=== PATIENT | male | born 1965 | race Caucasian/White ===

== ENCOUNTER 2018-02-07 13:18 | Emergency (ER) | payer OTHER ==
[2018-02-07] MEDS: NS 1,000 ML IV ×3 (13:52→19:52)
[2018-02-07 14:15] LABS: HEMOGLOBIN 10.7 g/dl (13.5-17.5); MEAN CORPUSCULAR HEMOGLOBIN 28.5 pg (27.0-33.0); MEAN CORPUSCULAR HGB CONC 32.4 g/dl (32.0-36.5); PLATELET COUNT, AUTOMATED 595 10^3/uL (150-450); RED BLOOD COUNT 3.75 10^6/uL (4.30-6.10); RED CELL DISTRIBUTION WIDTH 13.7 % (11.5-14.5); WHITE BLOOD COUNT 15.4 10^3/uL (4.0-10.0)
[2018-02-07 14:17] LABS: ALBUMIN 2.2 GM/DL (3.2-5.2); ALBUMIN/GLOBULIN RATIO 0.44 (1.00-1.93); ALKALINE PHOSPHATASE 108 U/L (45-117); ALT/SGPT 23 U/L (12-78); AMYLASE 161 U/L (25-115); ANION GAP 14 MEQ/L (8-16); AST/SGOT 29 U/L (7-37); BILIRUBIN,DIRECT 0.5 MG/DL (0.0-0.2); BILIRUBIN,TOTAL 1.2 MG/DL (0.2-1.0); BLOOD UREA NITROGEN 15 MG/DL (7-18); CALCIUM LEVEL 8.3 MG/DL (8.5-10.1); CARBON DIOXIDE LEVEL 21 MEQ/L (21-32); CHLORIDE LEVEL 99 MEQ/L (98-107); CK-MB VALUE MASS < 1.0 NG/ML (<3.6); CPK CREATINE PHOSPHOKINASE 16 U/L (39-308); CREATININE FOR GFR 1.36 MG/DL (0.70-1.30); GLOMERULAR FILTRATION RATE 59.1 (>56); GLUCOSE, FASTING 200 MG/DL (70-100); LIPASE 764 U/L (73-393); MB/CK RELATIVE INDEX 6.25 (< OR =4); POTASSIUM SERUM 4.4 MEQ/L (3.5-5.1); SODIUM LEVEL 134 MEQ/L (136-145); TOTAL PROTEIN 7.2 GM/DL (6.4-8.2); TROPONIN I < 0.02 NG/ML (< 0.10)
[2018-02-07 14:19] LABS: INR 1.54; PROTHROMBIN TIME 18.8 SECONDS (12.1-14.4)
[2018-02-07 14:20] LABS: ADD MANUAL DIFFER YES; DIFF SLIDE NUMBER 299; POSITIVE MORPH POS FLAG
[2018-02-07 14:28] LABS: LACTIC ACID SEPSIS PROTOCOL 5.3 MMOL/L (0.4-2.0)
[2018-02-07 14:40] LABS: BANDS 16 % (< 11); LYMPHOCYTES 8 % (16-52); METAMYELOCYTES 1 % (0-0); NEUTROPHILS 75 % (35-75)
[2018-02-07 14:42] LABS: PLATELET ESTIMATE INCREASED (NORMAL)
[2018-02-07] MEDS ORDERED: ISOVUE-370 76% 100ML VIAL (Q9967) As Ordered (15:07)
[2018-02-07] MEDS: ONDANSETRON 4MG/2ML VIAL (J2405) IV (15:21)
[2018-02-07] MEDS: HYDROMORPHONE HCL 0.5 MG/ 0.5 ML SYRINGE (J1170 PER 1) IV ×2 (15:53→17:19)
[2018-02-07] MEDS: MEROPENEM INJ 1 GM in APPROPRIATE DILUENT 1 EA IV (18:40)
[2018-02-07] MEDS: MORPHINE 2 MG/ML 1ML SYRINGE (J2270) IV (21:26)
== END 2018-02-07 21:35 | disposition short-term general hospital (02) ==
LOC: M ED 13:18
DX: K85.91 Acute pancreatitis with uninfected necrosis, unspecified (principal); R11.0 Nausea; I10 Essential (primary) hypertension; Z87.19 Personal history of other diseases of the digestive system; Z79.899 Other long term (current) drug therapy; Z79.2 Long term (current) use of antibiotics
CPT/HCPCS: J2405

== ENCOUNTER 2018-03-06 18:46 | Emergency (ER) | payer OTHER ==
[2018-03-06 20:26] LABS: BASO % 0.2 % (0.0-1.0); EOS % 0.2 % (0.0-3.0); HEMATOCRIT 28.5 % (42.0-52.0); HEMOGLOBIN 8.7 g/dl (13.5-17.5); IMMATURE GRANULOCYTE % 0.9 % (0-3.0); LYMPH # 0.8 10^3/uL (1.5-4.5); LYMPH % 5.6 % (24.0-44.0); MEAN CORPUSCULAR HEMOGLOBIN 26.9 pg (27.0-33.0); MEAN CORPUSCULAR HGB CONC 30.5 g/dl (32.0-36.5); MEAN CORPUSCULAR VOLUME 88.2 fl (80.0-96.0); MONO # 1.2 10^3/uL (0.0-0.8); MONO % 8.3 % (0.0-5.0); NEUTROPHILS # 12.5 10^3/uL (1.8-7.7); NEUTROPHILS % 84.8 % (36.0-66.0); PLATELET COUNT, AUTOMATED 428 10^3/uL (150-450); RED BLOOD COUNT 3.23 10^6/uL (4.30-6.10); RED CELL DISTRIBUTION WIDTH 16.9 % (11.5-14.5); WHITE BLOOD COUNT 14.7 10^3/uL (4.0-10.0)
[2018-03-06 20:44] LABS: LIPASE 184 U/L (73-393)
[2018-03-06 20:49] LABS: ALBUMIN/GLOBULIN RATIO 0.44 (1.00-1.93); ALKALINE PHOSPHATASE 52 U/L (45-117); ALT/SGPT 7 U/L (12-78); ANION GAP 8 MEQ/L (8-16); AST/SGOT 10 U/L (7-37); BILIRUBIN,DIRECT 0.3 MG/DL (0.0-0.2); BILIRUBIN,TOTAL 0.8 MG/DL (0.2-1.0); BLOOD UREA NITROGEN 5 MG/DL (7-18); CALCIUM LEVEL 7.8 MG/DL (8.5-10.1); CARBON DIOXIDE LEVEL 26 MEQ/L (21-32); CHLORIDE LEVEL 104 MEQ/L (98-107); CREATININE FOR GFR 0.58 MG/DL (0.70-1.30); GLOMERULAR FILTRATION RATE > 60.0 (>56); GLUCOSE, FASTING 114 MG/DL (70-100); POTASSIUM SERUM 3.4 MEQ/L (3.5-5.1); SODIUM LEVEL 138 MEQ/L (136-145); TOTAL PROTEIN 6.5 GM/DL (6.4-8.2)
[2018-03-06 20:50] LABS: LACTIC ACID SEPSIS PROTOCOL 1.3 MMOL/L (0.4-2.0)
[2018-03-06] MEDS: ACETAMINOPHEN 325 MG TAB PO (21:15)
[2018-03-06] MEDS: IMIPENEM/CILASTATIN 500 MG in D5W MINI-BAG PLUS 100 ML IV (21:20)
[2018-03-06] MEDS: NS 1,000 ML IV (21:20)
[2018-03-06] MEDS ORDERED: ISOVUE-370 76% 100ML VIAL (Q9967) As Ordered (22:26)
[2018-03-06] MEDS: VANCOMYCIN HCL 1,000 MG, VIAL MATE ADAPTER 1 EACH in D5W 250 ML IV (22:58)
[2018-03-06] MEDS: ONDANSETRON 4MG/2ML VIAL (J2405) IV (23:15)
[2018-03-07] MEDS: METOCLOPRAMIDE INJ 10MG/2ML VIAL (J2765) IV (00:45)
== END 2018-03-07 02:36 | disposition short-term general hospital (02) ==
LOC: M ED 03-07 02:36
DX: J18.1 Lobar pneumonia, unspecified organism (principal); K85.81 Other acute pancreatitis with uninfected necrosis; K86.3 Pseudocyst of pancreas; I10 Essential (primary) hypertension; D64.9 Anemia, unspecified; K21.9 Gastro-esophageal reflux disease without esophagitis; Z96.89 Presence of other specified functional implants; Z79.899 Other long term (current) drug therapy; Z79.2 Long term (current) use of antibiotics
CPT/HCPCS: J3370

== ENCOUNTER 2018-03-13 15:13 | Emergency (ER) | payer OTHER ==
[2018-03-13] MEDS: NS 1,000 ML IV (16:20)
[2018-03-13] MEDS: PANTOPRAZOLE 40MG INJ (PROTONIX) (C9113) IV (16:30)
[2018-03-13] MEDS: ONDANSETRON 4MG/2ML VIAL (J2405) IV (16:30)
[2018-03-13 16:59] LABS: BASO % 0.2 % (0.0-1.0); EOS % 0.3 % (0.0-3.0); HEMATOCRIT 27.5 % (42.0-52.0); HEMOGLOBIN 8.5 g/dl (13.5-17.5); IMMATURE GRANULOCYTE % 0.6 % (0-3.0); LYMPH % 7.1 % (24.0-44.0); MEAN CORPUSCULAR HEMOGLOBIN 26.8 pg (27.0-33.0); MEAN CORPUSCULAR HGB CONC 30.9 g/dl (32.0-36.5); MEAN CORPUSCULAR VOLUME 86.8 fl (80.0-96.0); MONO % 6.9 % (0.0-5.0); NEUTROPHILS % 84.9 % (36.0-66.0); PLATELET COUNT, AUTOMATED 506 10^3/uL (150-450); RED BLOOD COUNT 3.17 10^6/uL (4.30-6.10); RED CELL DISTRIBUTION WIDTH 17.2 % (11.5-14.5); WHITE BLOOD COUNT 14.1 10^3/uL (4.0-10.0)
[2018-03-13 17:19] LABS: ALBUMIN 1.9 GM/DL (3.2-5.2); ALBUMIN/GLOBULIN RATIO 0.32 (1.00-1.93); ALKALINE PHOSPHATASE 57 U/L (45-117); ALT/SGPT 8 U/L (12-78); ANION GAP 9 MEQ/L (8-16); AST/SGOT 9 U/L (7-37); BILIRUBIN,DIRECT 0.2 MG/DL (0.0-0.2); BILIRUBIN,TOTAL 0.5 MG/DL (0.2-1.0); BLOOD UREA NITROGEN 7 MG/DL (7-18); CALCIUM LEVEL 8.4 MG/DL (8.5-10.1); CARBON DIOXIDE LEVEL 25 MEQ/L (21-32); CHLORIDE LEVEL 105 MEQ/L (98-107); GLOMERULAR FILTRATION RATE > 60.0 (>56); GLUCOSE, FASTING 109 MG/DL (70-100); LIPASE 165 U/L (73-393); POTASSIUM SERUM 3.3 MEQ/L (3.5-5.1); SODIUM LEVEL 139 MEQ/L (136-145); TOTAL PROTEIN 7.8 GM/DL (6.4-8.2)
[2018-03-13 17:24] LABS: INR 1.48; PROTHROMBIN TIME 18.2 SECONDS (12.1-14.4)
[2018-03-13] MEDS: GI COCKTAIL 50ML BTL(HYOSCYAMINE/MAALOX/LIDOCAINE VISCOUS)(1:3:1) PO (18:15)
[2018-03-13] MEDS: ONDANSETRON 4 MG ORAL DISINTEGRATING TAB (Q0162 PER 1MG) PO (21:59)
== END 2018-03-13 22:01 | disposition home or self-care (01) ==
LOC: M ED 15:13
DX: R11.2 Nausea with vomiting, unspecified (principal); I10 Essential (primary) hypertension; Z79.899 Other long term (current) drug therapy
CPT/HCPCS: C9113

== ENCOUNTER 2018-04-11 00:43 | Emergency (ER) | payer OTHER ==
[2018-04-11] MEDS ORDERED: ISOVUE-370 76% 100ML VIAL (Q9967) As Ordered (04:05)
[2018-04-11 05:00] LABS: ANION GAP 10 MEQ/L (8-16); BLOOD UREA NITROGEN 4 MG/DL (7-18); CALCIUM LEVEL 7.7 MG/DL (8.5-10.1); CARBON DIOXIDE LEVEL 25 MEQ/L (21-32); CHLORIDE LEVEL 106 MEQ/L (98-107); CREATININE FOR GFR 0.54 MG/DL (0.70-1.30); GLOMERULAR FILTRATION RATE > 60.0 (>56); GLUCOSE, FASTING 92 MG/DL (70-100); POTASSIUM SERUM 3.4 MEQ/L (3.5-5.1); SODIUM LEVEL 141 MEQ/L (136-145)
== END 2018-04-11 07:15 | disposition home or self-care (01) ==
LOC: M ED 00:43
DX: Z43.8 Encounter for attention to other artificial openings (principal)
CPT/HCPCS: Q9967

== ENCOUNTER → 2018-08-28 | Outpatient (CLI) | payer OTHER ==
[~2018-08-28] MED LIST: /PANT40TA PO; AUGM875T28 PO; BACITAB PO; BACL10TA2 PO; BENG1CRE3 EXT; CARA1TAB2 PO; CEFE2INJ INJ; CEFE2INJ IV; CYCL10TA PO; DOXY-350 PO; FLAG500T PO; HEPA100I14 IV; HEPA100SY INJ; LISI10TA4 PO; METO1TAB87 PO; METO5TAB2 PO; MULTTAB4 PO; OXYC1TAB23 PO; PERCOCET PO; POTA1TAB14 PO; SALI0.9I2 IV; SENO17.2 PO; SIME80TA PO; TYLE500T78 PO; ZOFR4TAB14 PO; [UNRECOGNIZED DRUG - CODE] IV; [UNRECOGNIZED DRUG - OTHER] PO
[2018-08-28 10:42] LABS: BASO % 0.6 % (0.0-1.0); EOS # 0.2 10^3/uL (0.0-0.50); EOS % 2.7 % (0.0-3.0); HEMATOCRIT 41.7 % (42.0-52.0); HEMOGLOBIN 13.2 g/dl (13.5-17.5); LYMPH # 1.4 10^3/uL (1.5-4.5); LYMPH % 21.9 % (24.0-44.0); MEAN CORPUSCULAR HEMOGLOBIN 26.3 pg (27.0-33.0); MEAN CORPUSCULAR HGB CONC 31.7 g/dl (32.0-36.5); MEAN CORPUSCULAR VOLUME 83.1 fl (80.0-96.0); MONO # 0.4 10^3/uL (0.0-0.8); MONO % 6.4 % (0.0-5.0); NEUTROPHILS # 4.3 10^3/uL (1.8-7.7); NEUTROPHILS % 68.2 % (36.0-66.0); PLATELET COUNT, AUTOMATED 261 10^3/uL (150-450); RED BLOOD COUNT 5.02 10^6/uL (4.30-6.10); WHITE BLOOD COUNT 6.3 10^3/uL (4.0-10.0)
[2018-08-28 11:11] LABS: MALB URINE SIEMENS 10.5 MG/L; MAU/CREAT RATIO 7.2 MCG/MG (0.0-30.0)
[2018-08-28 11:21] LABS: ALBUMIN 3.7 GM/DL (3.2-5.2); ALT/SGPT 28 U/L (12-78); BLOOD UREA NITROGEN 18 MG/DL (7-18); CALCIUM LEVEL 8.9 MG/DL (8.5-10.1); CARBON DIOXIDE LEVEL 28 MEQ/L (21-32); CHLORIDE LEVEL 109 MEQ/L (98-107); CHOLESTEROL LEVEL 156 MG/DL (<200); CHOLESTEROL RISK RATIO 2.888 (<5); CREATININE FOR GFR 0.99 MG/DL (0.70-1.30); FERRITIN 20 NG/ML (26-388); FOLATE 11.4 NG/ML; FREE T4 1.03 NG/DL (0.76-1.46); GLOMERULAR FILTRATION RATE > 60.0 (>56); GLUCOSE, FASTING 116 MG/DL (70-100); HDL CHOLESTEROL 54 MG/DL (>40); IRON (FE) 62 UG/DL (65-175); LDL CHOLESTEROL 89 MG/DL (<100); NON-HDL-C 102 MG/DL; PERCENT SATURATION 16.2 % (19.7-50.0); SODIUM LEVEL 143 MEQ/L (136-145); TOTAL IRON BINDING CAPACITY 383 UG/DL (250-450); TOTAL PROTEIN 7.8 GM/DL (6.4-8.2); TRIGLYCERIDES LEVEL 64 MG/DL (<150)
--- NOTE | 2018-08-29 02:51 | REP ---
Clinical: Lower back pain. Technique: AP, lateral, bilateral oblique and coned-down views of the lumbosacral spine. Findings: The patient is noted to be status post cholecystectomy with evidence for pancreatic duct stents noted. Alignment and lordosis maintained. No acute fracture / compression injury or subluxation. No spondylolysis or spondylolisthesis. Very minimal endplate sclerosis, subtle early marginal spurring, and mild hypertrophic facet changes are appreciated. Subtle disc space narrowing and L5-S1 cannot be excluded. Impression: Very minimal age-related changes to the lumbosacral spine. Electronically Signed by Tristen Osman MD 08/29/2018 02:42 A
[2018-08-29 13:28] LABS: VITAMIN B12 LEVEL 317 PG/ML (232-1245)
== END ==
LOC: M LAB 09:32
PROVIDERS: ATTEND Physician Assistant
DX: M54.5 Low back pain (principal); D64.9 Anemia, unspecified; I10 Essential (primary) hypertension; Z13.220 Encounter for screening for lipoid disorders

== ENCOUNTER → 2018-10-11 | Outpatient (CLI) | payer OTHER ==
[2018-10-11 10:50] LABS: MEAN CORPUSCULAR HEMOGLOBIN 26.8 pg (27.0-33.0); MEAN CORPUSCULAR HGB CONC 31.8 g/dl (32.0-36.5); MEAN CORPUSCULAR VOLUME 84.3 fl (80.0-96.0); PLATELET COUNT, AUTOMATED 211 10^3/uL (150-450); RED BLOOD COUNT 5.22 10^6/uL (4.30-6.10); WHITE BLOOD COUNT 5.5 10^3/uL (4.0-10.0)
[2018-10-11 11:25] LABS: PERCENT SATURATION 23.9 % (19.7-50.0)
== END ==
LOC: M LAB 09:53
PROVIDERS: ATTEND Physician Assistant
DX: D50.9 Iron deficiency anemia, unspecified (principal)

== ENCOUNTER 2018-12-09 15:07 | Observation (INO) | payer OTHER ==
[~2018-12-09] VITALS: Ht 177.8 cm; Wt 81.8 kg
[~2018-12-09 15:07] MED LIST changes: -/PANT40TA PO; -CEFE2INJ INJ; +CEFE2INJ5 INJ; +PROT1TAB2 PO
[2018-12-09] MEDS ORDERED: NS 1,000 ML IV ONE (15:30)
[2018-12-09 15:50] LABS: HEMATOCRIT 46.7 % (42.0-52.0); MEAN CORPUSCULAR HGB CONC 32.1 g/dl (32.0-36.5); MEAN CORPUSCULAR VOLUME 87.1 fl (80.0-96.0); PLATELET COUNT, AUTOMATED 204 10^3/uL (150-450); RED BLOOD COUNT 5.36 10^6/uL (4.30-6.10); WHITE BLOOD COUNT 8.2 10^3/uL (4.0-10.0)
[2018-12-09 16:03] LABS: INR 1.04; PROTHROMBIN TIME 13.7 SECONDS (12.1-14.4)
[2018-12-09 16:04] LABS: PARTIAL THROMBOPLASTIN TIME 30.1 SECONDS (25.4-37.6)
[2018-12-09] MEDS ORDERED: ISOVUE-370 76% 100ML VIAL (Q9967) As Ordered ONE (16:10)
[2018-12-09 16:12] LABS: ATYPICAL LYMPH 3 % (0-5); LYMPHOCYTES 5 % (16-52); MONOCYTES 2 % (0-8); NEUTROPHILS 87 % (35-75)
[2018-12-09 16:13] LABS: PLATELET CLUMPS SMALL AMT; PLATELET ESTIMATE NORMAL (NORMAL)
[2018-12-09 16:15] LABS: ALBUMIN 3.8 GM/DL (3.2-5.2); ALT/SGPT 26 U/L (12-78); AMYLASE 55 U/L (25-115); BILIRUBIN,DIRECT 0.4 MG/DL (0.0-0.2); BILIRUBIN,TOTAL 2.4 MG/DL (0.2-1.0); CPK CREATINE PHOSPHOKINASE 86 U/L (39-308); LIPASE 80 U/L (73-393); MB/CK RELATIVE INDEX 1.16 (< OR =4); TOTAL PROTEIN 7.5 GM/DL (6.4-8.2); TROPONIN I < 0.02 NG/ML (< 0.10)
--- NOTE | 2018-12-09 18:00 | ECGEPIP ---
Stationary ECG Study [facility] - ED Test Date: 2018-12-09 Pat Name: JEFFREY ALY Department: Room: - Gender: M Bid Analyst: ESTEBAN : [id number] Requested By: JEANINE Silva Order Number: [id number] Reading MD: Chanelle Obrien Measurements Intervals [place] Rate: 77 P: 45 SD: 167 QRS: 67 QRSD: 98 T: 57 QT: 361 QTc: 410 Interpretive Statements SINUS RHYTHM EARLY REPOLARIZATION, CLINICAL CORRELATION DECREASED RATE 02/07/18 Electronically Signed On 12-09-2018 18:00:31 EDT by Chanelle Obrien
[2018-12-09] MEDS ORDERED: PANT40TA3 PO (18:48)
[2018-12-09] MEDS ORDERED: CVS1CAP2 PO (18:48)
[2018-12-09] MEDS ORDERED: ACETAMINOPHEN TAB 650MG DOSE (2X325MG) PO PRN (19:15)
[2018-12-09] MEDS: NS 1,000 ML IV SCH ×2 (19:36→21:39)
--- NOTE | 2018-12-09 19:52 | HPEPDOC ---
General Date of Admission 12/09/2018 Attending Physician: ZO CARDONA MD Chief Complaint The patient is a 53-year-old male admitted with a reason for visit of General Weakness. Source: Patient, Family Exam Limitations: No limitations Timing/Duration: 24 hours Severity: Moderate Associated Symptoms: Chills, Hypotension, Dizziness History of Present Illness Patient is a 53-year-old male, primary medical history significant for chronic pancreatitis with pancreatic stent, cholecystitis status post cholecystectomy and biliary stent placement, anemia, peptic ulcers on chronic proton pump i nhibitor for 4 years, presenting to the emergency room on account of dizziness and presyncope. On admission, patient's blood pressure was 83/52. Patient reports he has had diarrhea since yesterday and estimates he had about 4-6 episodes of diarrhea. He has been drinking and eating okay, but he continued to take his blood pressure medication, lisinopril. Patient and admit the did not check his blood pressure prior to taking lisinopril yesterday night. At about 10 AM today, he developed generalized weakness, fatigue, malaise and felt like he was going to pass out. Patient was driving at onset of symptoms. He went home and laid down and about 4 hours later when his got home, he was s till feeling bad. He reports subjective fevers. On arrival to the emergency room blood pressure was 83/52, lactic acid was elevated, bilirubin was elevated, CT abdomen and pelvis with abnormal for small bowel obstruction versus ileus. Patient's clinical exam was benign. He denied any pain to his abdomen. He denied any nausea or vomiting. Concerning CT findings were discussed with surgical team who recommended supportive care and overnight monitoring. His blood pressure improved with fluid bolus. At time of assessment. Patient denied any symptoms, although he was lying down. He reports similar symptoms years ago at which time it was discovered he had bleeding ulcers. Hemoglobin was low and blood pressure was low. He has been on lisinopril for 2 years and is followed by a local GI specialist for monitoring and management of chronic pancreatitis. Patient reports he has 40% of his pancreatic function remaining. Home Medications Scheduled Lactobacillus Combo No.10 (Probiotic) 1 Each Capsule, 1 CAP PO DAILY, (Reported) Lisinopril (Lisinopril) 10 Mg Tab, 10 MG PO QHS, (Reported) Pantoprazole Sodium (Pantoprazole Sodium) 40 Mg Tablet.dr, 40 MG PO QHS, (Reported) Allergies Coded Allergies: No Known Allergies (Unverified , 11/01/13) Past Medical History Medical History Chronic pancreatitis Ulcers Anemia GERD Surgical History Biliary stent placement Pancreatic stent placement Colonoscopy 2 years ago Cholecystectomy Bilateral hernia repair at 6 weeks of age Family History Father: Fatal myocardial infarction. Sibling: Hemachromatosis Social History * Smoker: Denies Alcohol: Denies Drugs: denies A-FIB/CHADSVASC A-FIB History Current/History of A-Fib/PAF?: No Current Oral Anticoagulant The: No Treatment Treatment ordered: NONE Review of Systems Other systems A 10 point pertinent review of systems was completed, negative except as stated in the history of presenting illness Physical Examination Other physical findings GENERAL: NAD SKIN : Warm, dry intact HEENT: Atraumatic, normocephalic, PERRL, moist mucous membrane CARDIOVASCULAR: Regular rate and rhythm, S1S2, no JVD, no edema, distal pulses + and palpable RESP: CTAB, no accessory muscle use noted ABDOMEN: Hypoactive non distended non tender MS: no joint deformities NEURO: Alert and oriented x 3, CN2-12 grossly intact PSYCH: no anxiety or agitation, appropriate mood and affect. Vital Signs Vital Signs Date Time Temp Pulse Resp B/P (MAP) Pulse Ox O2 Delivery O2 Flow Rate FiO2 12/09/18 18:46 139/72 (94) 12/09/18 18:37 95 18 97 12/09/18 18:22 Room Air 12/09/18 15:07 97.8 Laboratory Data Labs 24H Laboratory Tests 2 12/09/18 15:32: Nucleated Red Blood Cells % (auto) 0.0, Neutrophils 87H, Band Neutrophils 3, Lymphocytes (Manual) 5L, Monocytes (Manual) 2, Atypical Lymphocytes 3, Platelet Estimate NORMAL, Clumped Platelets SMALL AMT, Prothrombin Time 13.7, Prothromb T hernesto International Ratio 1.04, Activated Partial Thromboplast Time 30.1, Lactic Acid Level 2.1*H, Aspartate Amino Transf (AST/SGOT) 24, Alanine Aminotransferase (ALT/SGPT) 26, Alkaline Phosphatase 91, Total Bilirubin 2.4H, Direct Bilirubin 0.4H, Total Creatine Kinase 86, Creatine Kinase MB 1.0, Creatine Kinase MB Relative Index 1.16, Troponin I < 0.02, Total Protein 7.5, Albumin 3.8, Albumin/Globulin Ratio 1.03, Amylase Level 55, Lipase 80 12/09/18 15:56: POC Glucose (Misc Panel) 140H, POC Sodium (Misc Panel) 135L, POC Potassium (Misc Panel) 4.8, POC Chloride (Misc Panel) 102, POC Total CO2 (Misc Panel) 23.0, POC Blood Urea Nitrogen (Misc Panel 18, POC Ionized Calcium (Misc Panel) 4.5, POC Creatinine (Misc Panel) 1.1, POC Hematocrit (Misc Panel) 46.0 CBC/BMP Laboratory Tests 12/09/18 15:32 Red Blood Count 5.36, Mean Corpuscular Volume 87.1, Mean Corpuscular Hemoglobin 28.0, Mean Corpuscular Hemoglobin Concent 32.1, Red Cell Distribution Width 13.9 Microbiology Microbiology 12/09/18 Blood Culture, Received Pending 12/09/18 Blood Culture, Received Pending Assessment/Plan Presyncope -Likely due to volume depletion and concomitant antihypertensive use -Hold lisinopril at this time -Continue IV fluids -Admit to telemetry to exclude any underlying arrhythmia Diarrhea -Abnormal imaging study showing small bowel obstruction versus ileus -Patient, however, has no clinical signs or symptoms of obstructive process -. Keep on clear liquids at this time -Surgical consultation if persistent or clinical signs of small bowel obstru ction -GI panel Hypertension -Presenting with hypotension in the setting of diarrhea -Hold lisinopril at this time -Blood pressure monitoring Q 4 . Hours Hyperbilirubinemia -with history of biliary stenting -Keep nothing by mouth -Follow bilirubin levels in the morning -If febrile or signs of infection then start on empiric antibiotic therapy consult surgical team. -Low suspicion for cholangitis at this time -Patient states his stents that changed every 3 months -if bilirubin remains on upward trend, we'll need to reconsult GI for evaluation of stent patency DVT prophylaxis Lovenox daily GI prophylaxis -continue PPI Plan / VTE VTE Prophylaxis Ordered?: Yes MARTHA FRANCIS December 09, 2018 19:52
[2018-12-09 21:30] VITALS: BP 163/86
[2018-12-09] MEDS: ENOXAPARIN 30 MG/0.3 ML SYR (J1650) SC SCH (22:29)
[2018-12-09 23:19] LABS: ALBUMIN 2.9 GM/DL (3.2-5.2); ALT/SGPT 22 U/L (12-78); BILIRUBIN,TOTAL 1.9 MG/DL (0.2-1.0); BLOOD UREA NITROGEN 14 MG/DL (7-18); CALCIUM LEVEL 7.5 MG/DL (8.5-10.1); CARBON DIOXIDE LEVEL 24 MEQ/L (21-32); CHLORIDE LEVEL 108 MEQ/L (98-107); CREATININE FOR GFR 1.07 MG/DL (0.70-1.30); GLOMERULAR FILTRATION RATE > 60.0 (>56); GLUCOSE, FASTING 129 MG/DL (70-100); POTASSIUM SERUM 4.2 MEQ/L (3.5-5.1); SODIUM LEVEL 138 MEQ/L (136-145); TOTAL PROTEIN 6.4 GM/DL (6.4-8.2)
[2018-12-10] VITALS (8 sets, daily range): BP systolic 135–161; BP diastolic 65–102
[2018-12-10 06:03] LABS: HEMATOCRIT 40.5 % (42.0-52.0); MEAN CORPUSCULAR HGB CONC 32.1 g/dl (32.0-36.5); MEAN CORPUSCULAR VOLUME 87.3 fl (80.0-96.0); PLATELET COUNT, AUTOMATED 157 10^3/uL (150-450); RED BLOOD COUNT 4.64 10^6/uL (4.30-6.10); WHITE BLOOD COUNT 4.7 10^3/uL (4.0-10.0)
[2018-12-10 06:18] LABS: ALBUMIN 2.8 GM/DL (3.2-5.2); ALT/SGPT 22 U/L (12-78); BILIRUBIN,DIRECT 0.3 MG/DL (0.0-0.2); BILIRUBIN,TOTAL 2.3 MG/DL (0.2-1.0); BLOOD UREA NITROGEN 13 MG/DL (7-18); CALCIUM LEVEL 7.6 MG/DL (8.5-10.1); CARBON DIOXIDE LEVEL 26 MEQ/L (21-32); CHLORIDE LEVEL 109 MEQ/L (98-107); CREATININE FOR GFR 1.01 MG/DL (0.70-1.30); GLOMERULAR FILTRATION RATE > 60.0 (>56); GLUCOSE, FASTING 128 MG/DL (70-100); POTASSIUM SERUM 4.1 MEQ/L (3.5-5.1); SODIUM LEVEL 140 MEQ/L (136-145); TOTAL PROTEIN 6.3 GM/DL (6.4-8.2)
--- NOTE | 2018-12-10 07:33 | REP ---
HISTORY: Near syncopal episode. COMPARISON: The latest prior is a frontal view of the chest obtained 03/13/2018 as part of an abdominal series. The technique utilized in obtaining the radiograph has magnified the cardiac silhouette and accentuated the interstitial markings. AP and lateral views were obtained. The superior mediastinal structures are midline. The cardiac silhouette is unremarkable in size, shape and position. The diaphragmatic surfaces of the lungs are regular and the costophrenic angles are clear. The pulmonary bowden are clear. The imaged osseous structures are intact. IMPRESSION: There is no acute cardiopulmonary disease. Electronically Signed by Ja Luu DO 12/10/2018 09:11 A
--- NOTE | 2018-12-10 08:26 | REP ---
HISTORY: History of pancreatitis. COMPARISON: 04/11/2018. The lung bases are clear. The liver and spleen are within normal limits. The adrenal glands and kidneys are within normal limits. The abdominal aorta and periaortic regions are within normal limits. There is a stent within the pancreas. There is no abnormal peripancreatic fatty infiltration. There is a tiny amount of fluid trapped in the leaves of the small bowel mesentery, not in the pararenal space. There is evidence of central mesenteric fibrosis with mild diffuse fatty infiltration. Multiple small bowel loops are seen to be gas and fluid filled. There is no evidence of free intraperitoneal air. CT PELVIS: The pelvis bowel loops are within normal limits with the exception of the aforementioned small bowel. There is no free fluid or free air. There is no pelvic mass or adenopathy. The osseous structures are unchanged. IMPRESSION: Chronic changes seen involving the pancreas and peripancreatic regions without evidence of acute pancreatitis at this time. This needs to be correlated clinically and if the patient has clinical signs of pancreatitis, then I would recommend close followup. There is a small bowel ileus versus early SBO. This too needs to be correlated clinically with appropriate followup. Electronically Signed by Ja Luu DO 12/10/2018 09:12 A
[2018-12-10] MEDS: NS 1,000 ML IV SCH ×2 (08:30→17:34)
--- NOTE | 2018-12-10 14:41 | IPNPDOC ---
Date Seen The patient was seen on 12/10/18. Progress Note SUBJECTIVE: Patient tells me that he is feeling better he's not any further episodes of lightheadedness or near passing out. He tells me that his blood pressures improved and that he is feeling better. He reports passing gas from below no vomiting otherwise patient denies chest pain, shortness, breath, nausea, vomiting, fevers, chills OBJECTIVE PHYSICAL EXAMINATION: VITAL SIGNS: Please see below. GENERAL: Pleasant middle-aged man laying flat in bed awake alert oriented speaking in complete sentences no acute distress HEENT: Moist mucous membranes no elevation and CVP CARDIOVASCULAR: S1 S2 regular no additional heart sounds appreciated. RESPIRATORY: Clear to auscultation bilaterally. ABDOMINAL: Bowel sounds present abdomen soft and nontender EXTREMITIES: No clubbing, cyanosis, edema NEUROLOGICAL: Spontaneously moves all 4 extremities cranial 2 through 12 grossly intact, no gross focal deficits appreciated PSYCHOLOGICAL: Appropriate LABORATORY DATA, MICROBIOLOGY: Please see below. IMAGING STUDIES: Chest x-ray:There is no acute cardiopulmonary disease. CT abdomen pelvis:Chronic changes seen involving the pancreas and peripancreatic regions without evidence of acute pancreatitis at this time. This needs to be correlated clinically and if the patient has clinical signs of pancreatitis, then I would recommend close followup. There is a small bowel ileus versus early SBO. This too needs to be correlated clinically with appropriate followup. DVT prophylaxis ordered: Lovenox ASSESSMENT AND PLAN: This is a 53-year-old man with near syncope secondary to hypotension. PROBLEMS: 1. Near syncope: Secondary to hypotension was found to be hypotensive in the emergency room os was secondary to medication adverse affect. For the time being he is on normal saline his home lisinopril is on hold. He seems to be doing much better. Denies any other concerning prodromal symptoms no palpitations no lightheadedness no sandra syncope. The patient had also had recent diarrhea he has had no further episodes since being hospitalized. A GI PCR panel has been ordered. The combination of lisinopril and the diarrhea may have been dropped his pressure sufficiently enough to become symptomatic 2. Gastroesophageal reflux disease: Continue with PPI. 3. Elevated bilirubin: Patient has a history of biliary obstruction and chronic pancreatitis, MRI of the abdomen has been ordered to further evaluate this given his abnormal lab values. However my suspicion for any pathology is quite low given that he is completely asymptomatic and has a very benign abdominal exam. DISPOSITION: Pending PT possibly home tomorrow pending MRI. VS, I&O, 24H, Fishbone Vital Signs/I&O Vital Signs Date Time Temp Pulse Resp B/P (MAP) Pulse Ox O2 Delivery O2 Flow Rate FiO2 12/10/18 11:17 86 161/102 (121) 12/10/18 10:00 99.0 18 97 12/09/18 19:16 Room Air I&O- Last 24 Hours up to 6 AM 12/10/18 06:00 Intake Total 1850 ml Output Total 1050 ml Balance 800 ml Laboratory Data 24H LABS Laboratory Tests 2 12/09/18 15:32: Nucleated Red Blood Cells % (auto) 0.0, Neutrophils 87H, Band Neutrophils 3, Lymphocytes (Manual) 5L, Monocytes (Manual) 2, Atypical Lymphocytes 3, Platelet Estimate NORMAL, Clumped Platelets SMALL AMT, Prothrombin Time 13.7, Prothromb Time International Ratio 1.04, Activated Partial Thromboplast Time 30.1, Lactic Acid Level 2.1*H, Aspartate Amino Transf (AST/SGOT) 24, Alanine Aminotransferase (ALT/SGPT) 26, Alkaline Phosphatase 91, Total Bilirubin 2.4H, Direct Bilirubin 0.4H, Total Creatine Kinase 86, Creatine Kinase MB 1.0, Creatine Kinase MB Relative Index 1.16, Troponin I < 0.02, Total Protein 7.5, Albumin 3.8, Albumin/Globulin Ratio 1.03, Amylase Level 55, Lipase 80 12/09/18 15:56: POC Glucose (Misc Panel) 140H, POC Sodium (Misc Panel) 135L, POC Potassium (Misc Panel) 4.8, POC Chloride (Misc Panel) 102, POC Total CO2 (Misc Panel) 23.0, POC Blood Urea Nitrogen (Misc Panel 18, POC Ionized Calcium (Misc Panel) 4.5, POC Creatinine (Misc Panel) 1.1, POC Hematocrit (Misc Panel) 46.0 12/09/18 22:43: Lactic Acid Level 1.6, Aspartate Amino Transf (AST/SGOT) 12, Alanine Aminotransferase (ALT/SGPT) 22, Alkaline Phosphatase 68, Total Bilirubin 1.9H, T otal Protein 6.4, Albumin 2.9#L, Albumin/Globulin Ratio 0.83L, Anion Gap 6L, Glomerular Filtration Rate > 60.0, Blood Urea Nitrogen 14, Creatinine 1.07, Sodium Level 138, Potassium Level 4.2, Chloride Level 108H, Carbon Dioxide Level 24, Calcium Level 7.5L 12/10/18 05:20: Nucleated Red Blood Cells % (auto) 0.0, Aspartate Amino Transf (AST/SGOT) 12, Alanine Aminotransferase (ALT/SGPT) 22, Alkaline Phosphatase 69, Total Bilirubin 2.3H, Direct Bilirubin 0.3H, Total Protein 6.3L, Albumin 2.8L, Albumin/Globulin Ratio 0.80L, Anion Gap 5L, Glomerular Filtration Rate > 60.0, Blood Urea Nitrogen 13, Creatinine 1.01, Sodium Level 140, Potassium Level 4.1, Chloride Level 109H, Carbon Dioxide Level 26, Calcium Level 7.6L CBC/BMP Laboratory Tests 12/09/18 15:32 Red Blood Count 5.36, Mean Corpuscular Volume 87.1, Mean Corpuscular Hemoglobin 28.0, Mean Corpuscular Hemoglobin Concent 32.1, Red Cell Distribution Width 13.9 12/09/18 22:43 Calcium Level 7.5 L, Aspartate Amino Transf (AST/SGOT) 12, Alanine Aminotransferase (ALT/SGPT) 22, Alkaline Phosphatase 68, Total Bilirubin 1.9 H, Total Protein 6.4, Albumin 2.9 #L 12/10/18 05:20 Red Blood Count 4.64, Mean Corpuscular Volume 87.3, Mean Corpuscular Hemoglobin 28.0, Mean Corpuscular Hemoglobin Concent 32.1, Red Cell Distribution Width 14.1, Calcium Level 7.6 L, Aspartate Amino Transf (AST/SGOT) 12, Alanine Aminotransferase (ALT/SGPT) 22, Alkaline Phosphatase 69, Total Bilirubin 2.3 H, Total Protein 6.3 L, Albumin 2.8 L, Direct Bilirubin 0.3 H Microbiology Microbiology 12/09/18 Blood Culture, Received Pending 12/09/18 Blood Culture, Received Pending 12/10/18 Stool Occult Blood (PÉREZ) - Final, Complete 12/10/18 Gastrointestinal Tract Panel (PCR), Received Pending DAVIN MEJIA MD December 10, 2018 14:41
[2018-12-10] MEDS ORDERED: PANTOPRAZOLE 40MG TAB (PROTONIX) PO SCH (21:00)
[2018-12-10] MEDS: ENOXAPARIN 30 MG/0.3 ML SYR (J1650) SC SCH (21:00)
[2018-12-11 01:44] VITALS: BP_SYST 143; BP_SYST 147; BP_SYST 159; BP_DIAS 83; BP_DIAS 87; BP_DIAS 99
[2018-12-11 02:00] VITALS: BP 143/83
[2018-12-11] MEDS: NS 1,000 ML IV SCH (02:53)
[2018-12-11 05:48] LABS: HEMATOCRIT 36.3 % (42.0-52.0); HEMOGLOBIN 11.4 g/dl (13.5-17.5); MEAN CORPUSCULAR HEMOGLOBIN 27.1 pg (27.0-33.0); MEAN CORPUSCULAR HGB CONC 31.4 g/dl (32.0-36.5); MEAN CORPUSCULAR VOLUME 86.2 fl (80.0-96.0); PLATELET COUNT, AUTOMATED 152 10^3/uL (150-450); RED BLOOD COUNT 4.21 10^6/uL (4.30-6.10); WHITE BLOOD COUNT 4.6 10^3/uL (4.0-10.0)
[2018-12-11 06:00] VITALS: BP 165/78
[2018-12-11 06:21] LABS: ALBUMIN 2.8 GM/DL (3.2-5.2); ALT/SGPT 22 U/L (12-78); BILIRUBIN,TOTAL 1.1 MG/DL (0.2-1.0); BLOOD UREA NITROGEN 12 MG/DL (7-18); CALCIUM LEVEL 8.1 MG/DL (8.5-10.1); CARBON DIOXIDE LEVEL 25 MEQ/L (21-32); CHLORIDE LEVEL 114 MEQ/L (98-107); CREATININE FOR GFR 0.94 MG/DL (0.70-1.30); GLOMERULAR FILTRATION RATE > 60.0 (>56); GLUCOSE, FASTING 121 MG/DL (70-100); SODIUM LEVEL 143 MEQ/L (136-145); TOTAL PROTEIN 5.9 GM/DL (6.4-8.2)
[2018-12-11 10:00] VITALS: BP 145/85
--- NOTE | 2018-12-11 12:39 | DS.PDOC ---
Discharge Summary General Date of Admission December 09, 2018 at 19:15 Date of Discharge 12/11/2018 Discharge Summary DISCHARGE DIAGNOSIS:Orthostatic hypotension SECONDARY DIAGNOSIS: 1. Medication adverse effect 2. Diarrhea 3. Near syncope 4. Gastroesophageal reflux disease 5. Elevated bilirubin PROCEDURES PERFORMED DURING STAY: None. CONSULTANTS: None HOSPITAL COURSE: Patient is a 53-year-old man who presented with an episode of near syncope while driving. He had no sandra loss of consciousness. Denied lighth eadedness or dizziness palpitations loss of bladder or bowel note episodic tonic-clonic movements no head trauma. The patient finished driving went home and laid down and the symptoms didn't britni, he stated that it is been having often and to him and that is noted to have low blood pressure during these episodes. His MB orthostatic in the emergency room and was admitted to the hospitalist service. His lisinopril was held. Receive some IV fluids he had no further episodes of diarrhea. He had no abdominal pain fevers chills or GI PCR panel was negative his symptoms completely resolved. He was monitored on telemetry for 24 hours without any events. He did have an elevated bilirubin but no abdominal symptoms otherwise when this did trend downward. He denied associated nausea vomiting or bearing down during the episode of near syncope.. Patient is tolerating a regular diet he has had dysfunctional baseline DISCHARGE MEDICATIONS: Please see below. ALLERGIES: Please see below. SUBJECTIVE: Patient tells me that he is doing well he denies any abdominal complaints whatsoever today denies diarrhea and lightheadedness dizziness palpitations otherwise patient denies chest pain, shortness, breath, nausea, vomiting, fevers, chills OBJECTIVE: PHYSICAL EXAMINATION: VITAL SIGNS: Please see below. GENERAL: Pleasant man sitting up in bed awake alert oriented speaking in complete sentences no acute distress HEENT: Moist mucous membranes no elevation and CVP CARDIOVASCULAR: S1 S2 regular no additional heart sounds appreciated. RESPIRATORY: Clear to auscultation bilaterally. ABDOMINAL: Bowel sounds present abdomen soft and nontender EXTREMITIES: No clubbing, cyanosis, edema NEUROLOGICAL: Spontaneously moves all 4 extremities cranial 2 through 12 grossly intact, no gross focal deficits appreciated PSYCHOLOGICAL: Appropriate LABORATORY DATA, MICROBIOLOGY: Please see below. IMAGING STUDIES: Chest x-ray:There is no acute cardiopulmonary disease. CT abdomen pelvis:Chronic changes seen involving the pancreas and peripancreatic regions without evidence of acute pancreatitis at this time. This needs to be correlated clinically and if the patient has clinical signs of pancreatitis, then I would recommend close followup. There is a small bowel ileus versus early SBO. This too needs to be correlated clinically with appropriate followup. DVT prophylaxis ordered: Lovenox ASSESSMENT AND PLAN: This is a 53-year-old man with near syncope secondary to hypotension. PROBLEMS: 1. Near syncope: Secondary to hypotension was found to be hypotensive in the emergency room was secondary to medication adverse affect and diarrhea. His diarrhea has resolved his soft blood pressures resolved with IV fluids and holding his lisinopril. He is completely symptomatic at this time his telemetry has been negative. At this time I'll discharge him home with holding his lisinopril should his blood pressure become elevated could consider resuming it at a lower dose if needed. Should the patient have recurrent episodes of presyncope could consider Holter monitor however no abnormal telemetry noted during the stay. 2. Gastroesophageal reflux disease: Continue with PPI. 3. Elevated bilirubin: Patient has a history of biliary obstruction and chronic pancreatitis, he has been completely asymptomatic during his stay here he has no abdominal pain whatsoever no further diarrhea GI PCR panel is negative I see no reason to check an MRI of the abdomen at this time. His elevated bilirubin is trending downward DISPOSITION: Home to the care of his family. DISCHARGE CONDITION: Improved and Stable. FOLLOW UP: PCP within 7 days ACTIVITY: As prior to admission. DIET: As prior to admission TIME SPENT ON DISCHARGE: 50 minutes Vital Signs/I&Os Vital Signs Date Time Temp Pulse Resp B/P (MAP) Pulse Ox O2 Delivery O2 Flow Rate FiO2 12/11/18 10:00 97.0 68 19 145/85 (105) 95 12/09/18 19:16 Room Air I&O- Last 24 Hours up to 6 AM 12/11/18 06:00 Intake Total 5070 ml Output Total 1425 ml Balance 3645 ml Laboratory Data Labs 24H Laboratory Tests 2 12/11/18 05:16: Nucleated Red Blood Cells % (auto) 0.0, Anion Gap 4L, Glomerular Filtration Rate > 60.0, Blood Urea Nitrogen 12, Creatinine 0.94, Sodium Level 143, Potassium Level 4.0, Chloride Level 114H, Carbon Dioxide Level 25, Calcium Level 8.1L, Aspartate Amino Transf (AST/SGOT) 18, Alanine Aminotransferase (ALT/SGPT) 22, Alkaline Phosphatase 63, Total Bilirubin 1.1#H, Total Protein 5.9L, Albumin 2.8L, Albumin/Globulin Ratio 0.90L CBC/BMP Laboratory Tests 12/11/18 05:16 Red Blood Count 4.21 L, Mean Corpuscular Volume 86.2, Mean Corpuscular Hemoglo bin 27.1, Mean Corpuscular Hemoglobin Concent 31.4 L, Red Cell Distribution Width 13.9, Calcium Level 8.1 L, Aspartate Amino Transf (AST/SGOT) 18, Alanine Aminotransferase (ALT/SGPT) 22, Alkaline Phosphatase 63, Total Bilirubin 1.1 #H, Total Protein 5.9 L, Albumin 2.8 L Microbiology Microbiology 12/09/18 Blood Culture - Preliminary, Resulted No growth after 24 hours . All specim... 12/09/18 Blood Culture - Preliminary, Resulted No growth after 24 hours . All specim... 12/10/18 Stool Occult Blood (PÉREZ) - Final, Complete 12/10/18 Gastrointestinal Tract Panel (PCR) - Final, Complete Discharge Medications Scheduled Lactobacillus Combo No.10 (Probiotic) 1 Each Capsule, 1 CAP PO DAILY, (Reported) Pantoprazole Sodium (Pantoprazole Sodium) 40 Mg Tablet.dr, 40 MG PO QHS, (Reported) Allergies Coded Allergies: No Known Allergies (Unverified , 11/01/13) DAVIN MEJIA MD December 11, 2018 12:38
== END 2018-12-11 10:10 | disposition home or self-care (01) ==
LOC: M ED 15:07 → M ED INP 19:15 → M MSPAV 21:30
PROVIDERS: ADMIT Internal Medicine; ATTEND Internal Medicine
DX: I95.1 Orthostatic hypotension (principal); T46.4X5A Adverse effect of angiotensin-converting-enzyme inhibitors, initial encounter; R19.7 Diarrhea, unspecified; K21.9 Gastro-esophageal reflux disease without esophagitis; E80.7 Disorder of bilirubin metabolism, unspecified; D64.9 Anemia, unspecified; K86.1 Other chronic pancreatitis; Z79.899 Other long term (current) drug therapy
CPT/HCPCS: 36415; 71046; 74177; 80047; 80053; 82150; 82248; 82270; 82550; 82553; 83605; 83690; 85025; 85027; 85610; 85730; 86850; 86900; 86901; 87040; 87507; 93005; 93041; 96360; 96361; 97161; 99285; J1650; Q9967

== ENCOUNTER 2019-02-26 13:33 | Day surgery (SDC) | payer OTHER ==
[~2019-02-26] VITALS: Ht 177.8 cm; Wt 82.6 kg
[~2019-02-26 13:33] MED LIST changes: +ISOVUE-300 61% 50ML VIAL (Q9967) As Ordered ONE; +LIDOCAINE 1% MDV 20ML VIAL SQ PRN; +LR 1,000 ML IV ONE
[2019-02-26] MEDS ORDERED: dexameTHASONE 4 MG/ML 1ML VIAL (J1100) As Ordered ONE (14:33)
[2019-02-26] MEDS ORDERED: ROCURONIUM BROMIDE 50 MG/5 ML VIAL As Ordered ONE (14:33)
[2019-02-26] MEDS ORDERED: PROPOFOL 200 MG/20 ML VIAL As Ordered ONE (14:33)
[2019-02-26] MEDS ORDERED: LIDOCAINE 2% INJ 100 MG/5 ML SDV (FOR ANES.) As Ordered ONE (14:33)
[2019-02-26] MEDS ORDERED: ONDANSETRON 4MG/2ML VIAL (J2405) As Ordered ONE (14:33)
[2019-02-26] MEDS ORDERED: fentaNYL 100 MCG/2 ML INJECTION (J3010) As Ordered ONE ×2 (14:34→15:02)
[2019-02-26] MEDS ORDERED: MIDAZOLAM INJ 2 MG/2 ML VIAL (J2250) As Ordered ONE (14:34)
[2019-02-26] MEDS ORDERED: SUGAMMADEX SODIUM 500 MG/5 ML VIAL (BRIDION) As Ordered ONE (15:10)
[2019-02-26] MEDS ORDERED: GLYCOPYRROLATE INJ 0.2 MG/ML 2 ML VIAL As Ordered ONE (15:14)
[2019-02-26] MEDS ORDERED: oxyCODONE 5MG TAB PO PRN (16:30)
[2019-02-26] MEDS ORDERED: LR 1,000 ML IV SCH ×2 (16:30→16:45)
[2019-02-26] MEDS ORDERED: fentaNYL 100 MCG/2 ML INJECTION (J3010) IV PRN (16:30)
[2019-02-26] MEDS ORDERED: ONDANSETRON 4MG/2ML VIAL (J2405) IV PRN (16:30)
--- NOTE | 2019-02-26 17:07 | ROOR ---
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 Procedure: Pre-Anesthesia Assessment: - Prior to the procedure, a History and Physical was performed, and patient medications and allergies were reviewed. The patient is competent. The risks and benefits of the procedure and the sedation options and risks were discussed with the patient. All questions were answered and informed consent was obtained. Patient identification and proposed procedure were verified by the physician, the nurse and the anesthesiologist in the procedure room. Mental Status Examination: alert and oriented. Airway Examination: normal oropharyngeal airway and neck mobility. Respiratory Examination: clear to auscultation. CV Examination: normal. Prophylactic Antibiotics: The patient does not require prophylactic antibiotics. Prior Anticoagulants: The patient has taken no previous anticoagulant or antiplatelet agents. ASA Grade Assessment: III - A patient with severe systemic disease. After reviewing the risks and benefits, the patient was deemed in satisfactory condition to undergo the procedure. The anesthesia plan was to use general anesthesia. Immediately prior to administration of medications, the patient was re-assessed for adequacy to receive sedatives. The heart rate, respiratory rate, oxygen saturations, blood pressure, adequacy of pulmonary ventilation, and response to care were monitored throughout the procedure. The physical status of the patient was re-assessed after the procedure. The Duodenoscope was introduced through the mouth, and advanced to the duodenum and used to inject contrast into the bile duct and ventral pancreatic duct. The Endoscope was introduced through the mouth, and advanced to the duodenum and used to locate the major papilla. The ERCP was accomplished without difficulty. The patient tolerated the procedure well. Findings: A pancreatic stent was visible on the soil surveyor film. The esophagus was successfully intubated under direct vision. The scope was advanced from the mouth to the duodenum. The pharynx, larynx and associated structures, as well as the upper GI tract, were normal. The major papilla was bulging. One plastic stent originating in the pancreatic duct was emerging from the major papilla. The stent was visibly patent. A biliary sphincterotomy had been performed. The sphincterotomy appeared open. One stent was removed from the pancreatic duct using a snare. A 0.035 inch x 260 cm straight Hydra Jagwire was passed into the biliary tree. The short-nosed traction sphincterotome was passed over the guidewire and the bile duct was then deeply cannulated. Contrast was injected. I personally interpreted the bile duct images. Ductal flow of contrast was adequate. Image quality was adequate. Contrast extended to the main bile duct. 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 Contrast drainage from PD is noted. One 8.5 Fr by 5 cm plastic stent with a single external flap and a single internal flap was placed into the common bile duct. Bile flowed through the stent. The stent was in good position. A 0.035 inch x 260 cm straight Hydra Jagwire was passed into the ventral pancreatic duct. The ventral pancreatic duct was then deeply cannulated with the 9 mm balloon. Contrast was injected. Segmental irregularity of the pancreatic duct was seen in the ventral pancreatic duct in the head of the pancreas and pancreatic duct in the body of the pancreas. The pancreatic duct in the body of the pancreas contained a moderate stenosis. Opacification of the pancreatic duct in the body of the pancreas likely from previously noted embeded PD stent. One 5 Fr by 8 cm plastic stent with a single external pigtail and a single internal flap was placed 6.5 cm into the ventral pancreatic duct. Clear fluid flowed through the stent. The stent was in good position. Impression: - The major papilla appeared to be bulging. - Prior biliary sphincterotomy appeared open. - One visibly patent stent from the pancreatic duct was seen in the major papilla. - One stent was removed from the pancreatic duct. 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 - A pancreatic duct stricture was found with stent like opacification noted in body of pancreas, likely from prior retained stent.. - An irregularity was found in the ventral pancreatic duct in the head of the pancreas and pancreatic duct in the body of the pancreas. - One plastic stent was placed into the common bile duct. - One plastic stent was placed into the ventral pancreatic duct. Recommendation: - Avoid aspirin and nonsteroidal anti-inflammatory medicines. - The patient will be observed post-procedure, until all discharge criteria are met. - Patient has a contact number available for emergencies. The signs and symptoms of potential delayed complications were discussed with the patient. Return to normal activities tomorrow. Written discharge instructions were provided to the patient. - NPO today, then advance as tolerated to resume previous diet. - Perform magnetic resonance imaging (MRI) with gadolinium at appointment to be scheduled. - Use Creon 3 tablets PO TID with meals for 3 months. - Use broad spectrum antibiotics for 5 days. - Return to GI clinic 1 - 2 weeks. Please call GI clinic @ [phone] for apppointment date and time. - Return to primary care physician. Willie Sinclair MD Willie Sinclair MD 02/26/2019 5:07:06 PM Electronically signed by Willie Sinclair MD Number of Addenda: 0 Note Initiated On: 02/26/2019 2:21 PM Estimated Blood Loss: Estimated blood loss: none.
[2019-02-26] MEDS ORDERED: PIPERACILLIN/TAZOBACTAM SOD 4.5 GM in D5W MINI-BAG PLUS 50 ML IV ONE (18:00)
--- NOTE | 2019-02-26 18:28 | REP ---
REASON: Spot films obtained during intraoperative ERCP. Fluoroscopy time 2 minutes and 5 seconds. 93 image count. The exam was performed in my absentia. There is opacification of the hepatobiliary system. A stent has been placed in the common bile duct. Electronically Signed by Ja Luu DO 02/26/2019 07:55 P
[2019-02-26 19:30] VITALS: BP 161/86
== END 2019-02-26 19:35 | disposition home or self-care (01) ==
LOC: M SDC 13:33
PROVIDERS: ATTEND Internal Medicine Gastroenterology
DX: Z96.89 Presence of other specified functional implants (principal); Z46.59 Encounter for fitting and adjustment of other gastrointestinal appliance and device; R93.2 Abnormal findings on diagnostic imaging of liver and biliary tract; K83.3 Fistula of bile duct; K86.89 Other specified diseases of pancreas; K83.8 Other specified diseases of biliary tract; K21.9 Gastro-esophageal reflux disease without esophagitis
CPT/HCPCS: 43276; 74330; C1876; C1887; C2617; J1100; J2250; J2405; J2543; J3010; Q9967

== ENCOUNTER → 2019-02-26 | Outpatient (CLI) | payer OTHER ==
[~2019-02-26] MED LIST changes: +ACET-907 PO; +CVS1CAP2 PO; +MULTCAP PO; +PANT40TA3 PO
[2019-02-26 09:17] LABS: BASO # 0.1 10^3/uL (0.0-0.2); BASO % 0.9 % (0.0-1.0); EOS # 0.5 10^3/uL (0.0-0.50); EOS % 8.8 % (0.0-3.0); HEMATOCRIT 46.8 % (42.0-52.0); HEMOGLOBIN 14.8 g/dl (13.5-17.5); LYMPH # 1.6 10^3/uL (1.5-4.5); MEAN CORPUSCULAR HEMOGLOBIN 28.1 pg (27.0-33.0); MEAN CORPUSCULAR HGB CONC 31.6 g/dl (32.0-36.5); MONO # 0.5 10^3/uL (0.0-0.8); MONO % 8.8 % (0.0-5.0); NEUTROPHILS # 2.8 10^3/uL (1.8-7.7); NEUTROPHILS % 51.1 % (36.0-66.0); PLATELET COUNT, AUTOMATED 204 10^3/uL (150-450); RED BLOOD COUNT 5.26 10^6/uL (4.30-6.10); WHITE BLOOD COUNT 5.4 10^3/uL (4.0-10.0)
[2019-02-26 09:44] LABS: ALBUMIN 3.7 GM/DL (3.2-5.2); ALT/SGPT 26 U/L (12-78); BILIRUBIN,DIRECT 0.3 MG/DL (0.0-0.2); BILIRUBIN,TOTAL 1.3 MG/DL (0.2-1.0); BLOOD UREA NITROGEN 13 MG/DL (7-18); CREATININE FOR GFR 1.06 MG/DL (0.70-1.30); FERRITIN 13 NG/ML (26-388); GLOMERULAR FILTRATION RATE > 60.0 (>56); IRON (FE) 70 UG/DL (65-175); PERCENT SATURATION 18.5 % (19.7-50.0); TOTAL IRON BINDING CAPACITY 378 UG/DL (250-450); TOTAL PROTEIN 7.6 GM/DL (6.4-8.2)
[2019-02-26 12:08] LABS: VITAMIN B12 LEVEL 345 PG/ML
[2019-02-26 12:09] LABS: FOLATE 9.6 NG/ML
== END ==
LOC: M LAB 08:31
PROVIDERS: ATTEND Internal Medicine Gastroenterology
DX: D50.9 Iron deficiency anemia, unspecified (principal)

== ENCOUNTER → 2019-05-28 | Outpatient (CLI) | payer OTHER ==
[~2019-05-28] MED LIST changes: -ISOVUE-300 61% 50ML VIAL (Q9967) As Ordered ONE; -LIDOCAINE 1% MDV 20ML VIAL SQ PRN; -LR 1,000 ML IV ONE
[2019-05-28 11:35] LABS: BASO # 0.1 10^3/uL (0.0-0.2); BASO % 1.1 % (0.0-1.0); EOS # 0.2 10^3/uL (0.0-0.5); EOS % 3.7 % (0.0-3.0); HEMATOCRIT 47.2 % (42.0-52.0); HEMOGLOBIN 14.9 g/dl (13.5-17.5); LYMPH # 1.6 10^3/uL (1.5-5.0); LYMPH % 24.9 % (24.0-44.0); MEAN CORPUSCULAR HEMOGLOBIN 28.3 pg (27.0-33.0); MEAN CORPUSCULAR HGB CONC 31.6 g/dl (32.0-36.5); MEAN CORPUSCULAR VOLUME 89.6 fl (80.0-96.0); MONO # 0.6 10^3/uL (0.0-0.8); MONO % 8.5 % (0.0-5.0); NEUTROPHILS % 61.3 % (36.0-66.0); PLATELET COUNT, AUTOMATED 236 10^3/uL (150-450); RED BLOOD COUNT 5.27 10^6/uL (4.30-6.10); WHITE BLOOD COUNT 6.5 10^3/uL (4.0-10.0)
[2019-05-28 11:56] LABS: ALBUMIN 3.8 GM/DL (3.2-5.2); ALT/SGPT 41 U/L (12-78); AMYLASE 57 U/L (25-115); BILIRUBIN,DIRECT 0.3 MG/DL (0.0-0.2); BILIRUBIN,TOTAL 1.6 MG/DL (0.2-1.0); BLOOD UREA NITROGEN 16 MG/DL (7-18); CREATININE FOR GFR 1.05 MG/DL (0.70-1.30); GLOMERULAR FILTRATION RATE > 60.0 (>56); LIPASE 63 U/L (73-393); TOTAL PROTEIN 7.4 GM/DL (6.4-8.2)
== END ==
LOC: M LAB 10:55
PROVIDERS: ATTEND Internal Medicine Gastroenterology
DX: K83.3 Fistula of bile duct (principal); K86.1 Other chronic pancreatitis

== ENCOUNTER → 2019-06-19 | Outpatient (CLI) | payer OTHER ==
[~2019-06-19] MED LIST changes: +PROHANCE 279.3MG/ML 15ML VIAL (A9576) As Ordered ONE; +PROHANCE 279.3MG/ML 5ML VIAL (A9576) As Ordered ONE
--- NOTE | 2019-06-25 17:55 | REP ---
MRI PANCREAS WITH AND WITHOUT CONTRAST: COMPARISON: CT 12/09/2018 as well as multiple other prior CT exams. TECHNIQUE: Multiple sequences were obtained in the axial and coronal planes prior to and following the intravenous administration of 17 mL ProHance. The visualized liver is unremarkable with no mass. The visualized spleen is unremarkable and does not appear to be enlarged. There is no intrinsic abnormality. The adrenal glands are normal. The cystic structure in the left renal pelvis measures about 2.8 cm maximally with no suspicious enhancement. Patient has had a prior cholecystectomy. There is a stent in the distal common bile duct traversing in to the duodenum. Maximum diameter of the common bile duct is 8 mm. Pancreatic head demonstrates no mass. Pancreatic duct in this region is unremarkable. There is significant atrophy of the pancreatic body and tail. The pancreatic duct in this region is mildly dilated up to 6 mm maximally. Strand-like signal is seen in the surrounding mesentery with mild hazy and linear enhancement. Several subcentimeter lymph nodes are seen in this region of the mesentery as well. Findings are most compatible with chronic pancreatitis. No pseudocyst or fluid collection is seen. No periaortic adenopathy is seen. IMPRESSION:Status-post cholecystectomy, no evidence of choledocholithiasis. Stent in the distal common bile duct traverses into the duodenum. Maximum diameter of the common bile duct is 8 mm. Significant atrophy of the pancreatic body and tail with mild variable dilatation of the pancreatic duct in this region up to 6 mm. Surrounding linear signal and enhancement as well as mild hazy enhancement of the mesentery. There are also several subcentimeter lymph nodes in this region of the mesentery. Findings are most consistent with chronic pancreatitis. No free fluid or fluid collection. Electronically Signed by Rafael Lofton MD 06/26/2019 11:59 A
--- NOTE | 2019-06-25 18:10 | REP ---
MRCP: MRCP exam was accomplished utilizing multiple heavily T2 weighted sequences in the axial and coronal planes with MIP reconstruction images. There is slight dilatation of the central intrahepatic bile ducts as well as the common bile duct. Patient has had a prior cholecystectomy. Cystic duct remnant is visualized and is unremarkable. There is no evidence of choledocholithiasis. Maximum diameter of the common bile duct is 8 mm. There is a stent in the distal common bile duct traversing into the duodenum. Pancreatic duct in the region of the pancreatic head is normal in caliber. There is significant atrophy of the pancreatic body and tail. The pancreatic duct in that region demonstrates variable dilatation up to 6 mm. IMPRESSION:Status-post cholecystectomy. Common bile duct essentially normal in caliber status-post cholecystectomy, 8 mm maximally. Stent in the distal common bile duct traverses into the duodenum. Pancreatic duct in the pancreatic head region appears normal. There is significant atrophy of the pancreatic body and tail with variable mild pancreatic duct dilatation in this region up to 6 mm. Electronically Signed by Rafael Lofton MD 06/26/2019 11:59 A
== END ==
LOC: M RAD 16:37
PROVIDERS: ATTEND Internal Medicine Gastroenterology
DX: K83.3 Fistula of bile duct (principal); Z90.49 Acquired absence of other specified parts of digestive tract; K86.9 Disease of pancreas, unspecified; R59.0 Localized enlarged lymph nodes
CPT/HCPCS: 74181; 74183; A9576

== ENCOUNTER → 2019-07-03 | Outpatient (CLI) | payer OTHER ==
[~2019-07-03] MED LIST changes: +METO25TA4 PO; -PROHANCE 279.3MG/ML 15ML VIAL (A9576) As Ordered ONE; -PROHANCE 279.3MG/ML 5ML VIAL (A9576) As Ordered ONE
[2019-07-03 12:26] LABS: AMYLASE 56 U/L (25-115); BLOOD UREA NITROGEN 14 MG/DL (7-18); CALCIUM LEVEL 8.6 MG/DL (8.5-10.1); CARBON DIOXIDE LEVEL 27 MEQ/L (21-32); CHLORIDE LEVEL 110 MEQ/L (98-107); CHOLESTEROL LEVEL 184 MG/DL (<200); CHOLESTEROL RISK RATIO 3.607 (<5); CREATININE FOR GFR 1.04 MG/DL (0.70-1.30); GLOMERULAR FILTRATION RATE > 60.0 (>56); GLUCOSE, FASTING 111 MG/DL (70-100); HDL CHOLESTEROL 51 MG/DL (>40); LDL CHOLESTEROL 109 MG/DL (<100); LIPASE 79 U/L (73-393); NON-HDL-C 133 MG/DL; POTASSIUM SERUM 4.7 MEQ/L (3.5-5.1); SODIUM LEVEL 142 MEQ/L (136-145); TRIGLYCERIDES LEVEL 122 MG/DL (<150)
== END ==
LOC: M LAB 09:59
PROVIDERS: ATTEND Physician Assistant Medical
DX: Z12.5 Encounter for screening for malignant neoplasm of prostate (principal); I10 Essential (primary) hypertension; Z87.19 Personal history of other diseases of the digestive system; Z13.220 Encounter for screening for lipoid disorders

== ENCOUNTER 2019-07-04 05:50 | Day surgery (SDC) | payer OTHER ==
[~2019-07-04] VITALS: Ht 177.8 cm; Wt 87.6 kg
[2019-07-04] MEDS ORDERED: NS 1,000 ML IV ONE (06:15)
[2019-07-04] MEDS ORDERED: LR 1,000 ML IV ONE (06:15)
[2019-07-04] MEDS ORDERED: ISOVUE-300 61% 50ML VIAL (Q9967) As Ordered ONE (07:14)
[2019-07-04] MEDS ORDERED: fentaNYL 100 MCG/2 ML INJECTION (J3010) As Ordered ONE (07:17)
[2019-07-04] MEDS ORDERED: PROPOFOL 200 MG/20 ML VIAL As Ordered ONE (07:17)
[2019-07-04] MEDS ORDERED: ROCURONIUM BROMIDE 50 MG/5 ML VIAL As Ordered ONE (07:17)
[2019-07-04] MEDS ORDERED: LIDOCAINE 2% INJ 100 MG/5 ML SDV (FOR ANES.) As Ordered ONE (07:17)
[2019-07-04] MEDS ORDERED: MIDAZOLAM INJ 2 MG/2 ML VIAL (J2250) As Ordered ONE (07:18)
[2019-07-04] MEDS ORDERED: dexameTHASONE 4 MG/ML 1ML VIAL (J1100) As Ordered ONE (07:42)
[2019-07-04] MEDS ORDERED: GLYCOPYRROLATE INJ 0.2 MG/ML 2 ML VIAL As Ordered ONE (07:55)
[2019-07-04] MEDS ORDERED: METOCLOPRAMIDE INJ 10MG/2ML VIAL (J2765) As Ordered ONE (07:55)
[2019-07-04] MEDS ORDERED: ONDANSETRON 4MG/2ML VIAL (J2405) As Ordered ONE (07:55)
[2019-07-04] MEDS ORDERED: NEOSTIGMINE 10 MG/10 ML VIAL (J2710) As Ordered ONE (07:55)
[2019-07-04] MEDS ORDERED: ePHEDrine SULFATE 25 MG/5 ML(5MG/ML) SYRINGE As Ordered ONE (08:28)
[2019-07-04] MEDS ORDERED: fentaNYL 100 MCG/2 ML INJECTION (J3010) IV PRN (09:15)
[2019-07-04] MEDS ORDERED: oxyCODONE 5MG TAB PO PRN (09:15)
[2019-07-04] MEDS ORDERED: LR 1,000 ML IV SCH (09:15)
[2019-07-04] MEDS ORDERED: ONDANSETRON 4MG/2ML VIAL (J2405) IV PRN (09:15)
--- NOTE | 2019-07-04 09:22 | ROOR ---
Patient Name: Doyle Guerra Procedure Date: 07/04/2019 7:18 AM Date of : 1965 Age: 54 Room: [facility] Gender: Male Note Status: Finalized Procedure: ERCP Indications: Follow-up of pancreatic fistula, Stent change Providers: Willie Sinclair MD Referring MD: Carolyn MARTIN Requesting Provider: Medicines: Monitored Anesthesia Care Complications: No immediate complications. Procedure: Pre-Anesthesia Assessment: - Prior to the procedure, a History and Physical was performed, and patient medications and allergies were reviewed. The patient is competent. The risks and benefits of the procedure and the sedation options and risks were discussed with the patient. All questions were answered and informed consent was obtained. Patient identification and proposed procedure were verified by the physician, the nurse and the anesthesiologist in the procedure room. Mental Status Examination: alert and oriented. Airway Examination: normal oropharyngeal airway and neck mobility. Respiratory Examination: clear to auscultation. CV Examination: normal. Prophylactic Antibiotics: The patient does not require prophylactic antibiotics. Prior Anticoagulants: The patient has taken no previous anticoagulant or antiplatelet agents. ASA Grade Assessment: II - A patient with mild systemic disease. After reviewing the risks and benefits, the patient was deemed in satisfactory condition to undergo the procedure. The anesthesia plan was to use monitored anesthesia care (MAC). Immediately prior to administration of medications, the patient was re-assessed for adequacy to receive sedatives. The heart rate, respiratory rate, oxygen saturations, blood pressure, adequacy of pulmonary ventilation, and response to care were monitored throughout the procedure. The physical status of the patient was re-assessed after the procedure. The Duodenoscope was introduced through the mouth, and advanced to the duodenum and used to inject contrast into the bile duct and ventral pancreatic duct. The ERCP was accomplished without difficulty. The patient tolerated the procedure well. Findings: A biliary stent was visible on the keno dealer film. A pancreatic stent was visible on the keno dealer film. The esophagus was successfully intubated under direct vision. The scope was advanced from the mouth to the duodenum. The pharynx, larynx and associated structures, as well as the upper GI tract, were normal. Two plastic biliary pancreatic stents originating in the biliary tree and the pancreatic duct were emerging from the major papilla. The stents were visibly patent. Inspection of the major papilla revealed that biliary and pancreatic sphincterotomies had been performed previously. The biliary sphincterotomy appeared open. The pancreatic sphincterotomy appeared open. Two stents were removed from the biliary tree and the pancreatic duct using a snare. A 0.035 inch x 260 cm straight Hydra Jagwire was passed into the biliary tree. The short-nosed traction sphincterotome was passed over the guidewire and the bile duct was then deeply cannulated. Contrast was injected. I personally interpreted the bile duct images. Ductal flow of contrast was adequate. Image quality was adequate. Contrast extended to the entire biliary tree. There was no extravasation of contrast. A 0.035 inch x 260 cm straight Hydra Jagwire was passed into the ventral pancreatic duct. The ventral pancreatic duct was then deeply cannulated with the regular tipped cannula and tapered-tip cannula. Contrast was injected. Segmental irregularity of the pancreatic duct was seen in the pancreatic duct in the body of the pancreas. The pancreatic duct in the tail of the pancreas contained a severe stenosis. One 5 Fr by 10 cm plastic stent with a 3/4 external pigtail and a single internal flap was placed 7.5 cm into the ventral pancreatic duct. Clear fluid flowed through the stent. The stent was in good position. One 10 mm by 6 cm covered metal stent with no external flaps and no internal flaps was placed 5 cm into the common bile duct. Bile flowed through the stent. The stent was in good position. Impression: - Two visibly patent stents from the biliary tree and the pancreatic duct were seen in the major papilla. - Prior biliary sphincterotomy appeared open. - Prior pancreatic sphincterotomy appeared open. - A pancreatic duct stricture was found. - An irregularity was found in the pancreatic duct in the body of the pancreas. - Two stents were removed from the biliary tree and the pancreatic duct. - One plastic stent was placed into the ventral pancreatic duct. - One covered metal stent was placed into the common bile duct. Recommendation: - Avoid aspirin and nonsteroidal anti-inflammatory medicines. - The patient will be observed post-procedure, until all discharge criteria are met. - Patient has a contact number available for emergencies. The signs and symptoms of potential delayed complications were discussed with the patient. Return to normal activities tomorrow. Written discharge instructions were provided to the patient. - Clear liquid diet for 1 day, then advance as tolerated to resume previous diet. - Continue present medications. - Check liver enzymes (AST, ALT, alkaline phosphatase, bilirubin) and stool elastase in 6 weeks. - Telephone GI clinic if symptomatic in 1 day. - Return to GI clinic in [facility] (address [address], [address] [address]) in 4 -- 6 weeks. Please call GI clinic @ [phone] for apppointment date and time. - Return to primary care physician. Attending Participation: I personally performed the entire procedure. Willie Sinclair MD Willie Sinclair MD 07/04/2019 9:22:06 AM Electronically signed by Willie Sinclair MD Number of Addenda: 0 Note Initiated On: 07/04/2019 7:18 AM Estimated Blood Loss: Estimated blood loss was minimal.
--- NOTE | 2019-07-04 09:48 | REP ---
C-ARM VIEWS DURING ERCP: Multiple C-arm views are performed during ERCP exam. Stent is seen in the distal common bile duct and a pancreatic duct stent is seen, on the initial image. Cholecystectomy clips are also noted. Common bile duct stent is removed. Catheter manipulation is performed in the common bile duct with contrast injected partially opacifying the duct. Catheter manipulation is also performed in the pancreatic duct and contrast is injected partially opacifying the duct. A new common bile duct stent is placed as well as a pancreatic duct stent, as seen on the final image. 2 minutes 1 second fluoroscopy time utilized. Electronically Signed by Rafael Lofton MD 07/06/2019 05:21 P
[2019-07-04] MEDS ORDERED: LACTATED RINGER'S 500 ML IV ONE (10:00)
[2019-07-04 11:00] VITALS: BP 166/78
== END 2019-07-04 11:05 | disposition home or self-care (01) ==
LOC: M SDC 05:50
PROVIDERS: ATTEND Internal Medicine Gastroenterology
DX: Z96.89 Presence of other specified functional implants (principal); Z46.59 Encounter for fitting and adjustment of other gastrointestinal appliance and device; K86.89 Other specified diseases of pancreas; R93.2 Abnormal findings on diagnostic imaging of liver and biliary tract; I10 Essential (primary) hypertension; K44.9 Diaphragmatic hernia without obstruction or gangrene; Z79.899 Other long term (current) drug therapy; Z91.030 Bee allergy status
CPT/HCPCS: 43276; 74330; C1876; C2617; J1100; J2250; J2405; J2710; J2765; J3010; Q9967

== ENCOUNTER → 2019-08-21 | Outpatient (CLI) | payer OTHER ==
[2019-08-21 16:22] LABS: BASO # 0.1 10^3/uL (0.0-0.2); BASO % 0.9 % (0.0-1.0); EOS # 0.3 10^3/uL (0.0-0.5); HEMATOCRIT 46.9 % (42.0-52.0); HEMOGLOBIN 14.8 g/dl (13.5-17.5); LYMPH # 1.7 10^3/uL (1.5-5.0); MEAN CORPUSCULAR HEMOGLOBIN 28.2 pg (27.0-33.0); MEAN CORPUSCULAR HGB CONC 31.6 g/dl (32.0-36.5); MEAN CORPUSCULAR VOLUME 89.3 fl (80.0-96.0); MONO # 0.5 10^3/uL (0.0-0.8); MONO % 7.9 % (0.0-5.0); NEUTROPHILS # 4.2 10^3/uL (1.5-8.5); NEUTROPHILS % 60.8 % (36.0-66.0); PLATELET COUNT, AUTOMATED 220 10^3/uL (150-450); RED BLOOD COUNT 5.25 10^6/uL (4.30-6.10); WHITE BLOOD COUNT 6.9 10^3/uL (4.0-10.0)
[2019-08-21 16:59] LABS: ALT/SGPT 37 U/L (12-78); AMYLASE 55 U/L (25-115); BILIRUBIN,DIRECT 0.2 MG/DL (0.0-0.2); BILIRUBIN,TOTAL 1.4 MG/DL (0.2-1.0); BLOOD UREA NITROGEN 9 MG/DL (7-18); CREATININE FOR GFR 1.01 MG/DL (0.70-1.30); FERRITIN 24 NG/ML (26-388); GLOMERULAR FILTRATION RATE > 60.0 (>56); IRON (FE) 56 UG/DL (65-175); LIPASE 54 U/L (73-393); PERCENT SATURATION 14.7 % (19.7-50.0); TOTAL IRON BINDING CAPACITY 380 UG/DL (250-450); TOTAL PROTEIN 7.4 GM/DL (6.4-8.2)
== END ==
LOC: M LAB 15:46
PROVIDERS: ATTEND Internal Medicine Gastroenterology
DX: K86.1 Other chronic pancreatitis (principal)

== ENCOUNTER 2019-08-27 09:33 | Emergency (ER) | payer OTHER ==
[~2019-08-27] VITALS: Ht 177.8 cm; Wt 87.6 kg
[2019-08-27] MEDS ORDERED: PANT40TA3 (09:40)
[2019-08-27] MEDS ORDERED: CREO3600 (09:40)
[2019-08-27] MEDS ORDERED: METO1TAB87 (09:40)
[2019-08-27] MEDS ORDERED: AMOX500C PO (11:25)
[2019-08-27] MEDS ORDERED: AUGMENTIN 500 MG TAB PO ONE (11:30)
[2019-08-27] MEDS ORDERED: AMOXICILLIN 500 MG CAP PO ONE (11:30)
[2019-08-27 11:36] VITALS: BP 179/93
== END 2019-08-27 11:38 | disposition home or self-care (01) ==
LOC: M ED 09:33
DX: H61.22 Impacted cerumen, left ear (principal); Z79.899 Other long term (current) drug therapy; I10 Essential (primary) hypertension; Z91.030 Bee allergy status

== ENCOUNTER → 2019-09-28 | Outpatient (CLI) | payer OTHER ==
[~2019-09-28] MED LIST changes: +AMOX500C PO; +CREO3600; +METO1TAB87; +PANT40TA3
[2019-09-28 10:18] LABS: BASO # 0.1 10^3/uL (0.0-0.2); BASO % 0.9 % (0.0-1.0); EOS # 0.5 10^3/uL (0.0-0.5); EOS % 8.4 % (0.0-3.0); HEMATOCRIT 45.6 % (42.0-52.0); LYMPH # 1.6 10^3/uL (1.5-5.0); LYMPH % 26.9 % (24.0-44.0); MEAN CORPUSCULAR HEMOGLOBIN 28.9 pg (27.0-33.0); MEAN CORPUSCULAR HGB CONC 32.9 g/dl (32.0-36.5); MEAN CORPUSCULAR VOLUME 87.9 fl (80.0-96.0); MONO # 0.5 10^3/uL (0.0-0.8); MONO % 9.3 % (0.0-5.0); NEUTROPHILS # 3.1 10^3/uL (1.5-8.5); PLATELET COUNT, AUTOMATED 234 10^3/uL (150-450); RED BLOOD COUNT 5.19 10^6/uL (4.30-6.10); WHITE BLOOD COUNT 5.8 10^3/uL (4.0-10.0)
[2019-09-28 10:49] LABS: ALBUMIN 3.8 GM/DL (3.2-5.2); ALT/SGPT 39 U/L (12-78); AMYLASE 57 U/L (25-115); BILIRUBIN,DIRECT 0.3 MG/DL (0.0-0.2); BILIRUBIN,TOTAL 1.4 MG/DL (0.2-1.0); BLOOD UREA NITROGEN 14 MG/DL (7-18); CREATININE FOR GFR 1.09 MG/DL (0.70-1.30); GLOMERULAR FILTRATION RATE > 60.0 (>56); LIPASE 67 U/L (73-393); TOTAL PROTEIN 7.2 GM/DL (6.4-8.2)
[2019-09-28 13:13] LABS: FERRITIN 29 NG/ML (26-388); IRON (FE) 66 UG/DL (65-175); PERCENT SATURATION 17.7 % (19.7-50.0); TOTAL IRON BINDING CAPACITY 372 UG/DL (250-450)
[2019-09-28 13:20] LABS: FOLATE 11.4 NG/ML (>5.4); VITAMIN B12 LEVEL 380 PG/ML (247-911)
--- NOTE | 2019-09-28 13:35 | REP ---
KUB ABDOMEN AND PELVIS: KUB films of the abdomen and pelvis are performed with two views obtained. Bowel gas pattern is normal. Metallic clips are seen in the right upper quadrant from prior cholecystectomy. There is a stent in the distal common bile duct which as a mesh-like appearance. There is a thin pancreatic stent to the left of midline. Unreviewed
== END ==
LOC: M LAB 09:39
PROVIDERS: ATTEND Internal Medicine Gastroenterology
DX: K86.1 Other chronic pancreatitis (principal); R93.2 Abnormal findings on diagnostic imaging of liver and biliary tract; Z96.89 Presence of other specified functional implants

== ENCOUNTER → 2020-03-19 | Outpatient (CLI) | payer OTHER ==
[~2020-03-19] MED LIST changes: +CYCL-707 PO; -CYCL10TA PO; +FERR325T82 PO; +PANT40TA29; +PANT40TA29 PO; -PANT40TA3; -PANT40TA3 PO
== END ==
LOC: M LABSMTC 13:36
PROVIDERS: ATTEND Anesthesiology
DX: Z03.818 Encounter for observation for suspected exposure to other biological agents ruled out (principal); Z11.59 Encounter for screening for other viral diseases
CPT/HCPCS: C9803; U0003

== ENCOUNTER 2020-03-24 06:17 | Day surgery (SDC) | payer OTHER ==
[~2020-03-24] VITALS: Ht 177.8 cm; Wt 87.5 kg
[2020-03-24] MEDS ORDERED: LR 1,000 ML IV ONE (07:00)
[2020-03-24] MEDS ORDERED: LIDOCAINE 2% 100MG/5ML SDV (FOR ANES.) As Ordered ONE (07:05)
[2020-03-24] MEDS ORDERED: propofoL 200 MG/20 ML VIAL As Ordered ONE (07:05)
[2020-03-24] MEDS ORDERED: ROCURONIUM BROMIDE 50 MG/5 ML VIAL As Ordered ONE (07:05)
[2020-03-24] MEDS ORDERED: SUGAMMADEX SODIUM 500 MG/5 ML VIAL (BRIDION) As Ordered ONE (07:05)
[2020-03-24] MEDS ORDERED: dexameTHASONE 4 MG/ML 1ML VIAL (J1100 PER 1MG) As Ordered ONE (07:05)
[2020-03-24] MEDS ORDERED: ONDANSETRON 4MG/2ML VIAL As Ordered ONE (07:05)
[2020-03-24] MEDS ORDERED: fentaNYL 100 MCG/2 ML INJECTION (J3010) As Ordered ONE (07:06)
[2020-03-24] MEDS ORDERED: MIDAZOLAM INJ 2MG/2ML VIAL (J2250 PER 1MG) As Ordered ONE (07:06)
[2020-03-24] MEDS ORDERED: ISOVUE-300 61% 50ML VIAL As Ordered ONE (07:13)
[2020-03-24] MEDS ORDERED: PERCOCET 5MG/325MG TAB PO PRN (09:00)
[2020-03-24] MEDS ORDERED: ONDANSETRON 4MG/2ML VIAL IV PRN (09:00)
[2020-03-24] MEDS ORDERED: LR 1,000 ML IV SCH (09:00)
[2020-03-24] MEDS ORDERED: fentaNYL 100 MCG/2 ML INJECTION (J3010) IV PRN (09:00)
[2020-03-24] MEDS ORDERED: METOCLOPRAMIDE INJ 10MG/2ML VIAL (J2765 PER 1) IV PRN (09:00)
[2020-03-24 10:05] VITALS: BP 181/85
--- NOTE | 2020-04-02 11:32 | ROOR ---
Patient Name: Doyle Guerra Procedure Date: 03/24/2020 7:25 AM Date of : 1965 Age: 54 Room: Main OR Gender: Male Note Status: Finalized Procedure: ERCP Indications: Follow-up of biliary fistula, Treatment of biliary fistula Providers: Willie Sinclair MD Referring MD: Erickson Monzon MD Requesting Provider: Medicines: Monitored Anesthesia Care Complications: No immediate complications. Procedure: Pre-Anesthesia Assessment: - Prior to the procedure, a History and Physical was performed, and patient medications and allergies were reviewed. The patient is competent. The risks and benefits of the procedure and the sedation options and risks were discussed with the patient. All questions were answered and informed consent was obtained. Patient identification and proposed procedure were verified by the physician, the nurse and the anesthesiologist in the procedure room. Mental Status Examination: alert and oriented. Airway Examination: normal oropharyngeal airway and neck mobility. Respiratory Examination: clear to auscultation. CV Examination: normal. Prophylactic Antibiotics: The patient does not require prophylactic antibiotics. Prior Anticoagulants: The patient has taken no previous anticoagulant or antiplatelet agents. ASA Grade Assessment: II - A patient with mild systemic disease. After reviewing the risks and benefits, the patient was deemed in satisfactory condition to undergo the procedure. The anesthesia plan was to use general anesthesia. Immediately prior to administration of medications, the patient was re-assessed for adequacy to receive sedatives. The heart rate, respiratory rate, oxygen saturations, blood pressure, adequacy of pulmonary ventilation, and response to care were monitored throughout the procedure. The physical status of the patient was re-assessed after the procedure. The Duodenoscope was introduced through the mouth, and advanced to the duodenum and used to inject contrast into the bile duct. The ERCP was accomplished without difficulty. The patient tolerated the procedure well. Findings: A biliary stent was visible on the broiler chef or cook film. The esophagus was successfully intubated under direct vision without detailed examination of the pharynx, larynx, and associated structures, and upper GI tract. The upper GI tract was grossly normal. One covered metal stent originating in the biliary tree was emerging from the major papilla. A biliary sphincterotomy had been performed. The sphincterotomy appeared open. One stent was removed from the common bile duct using a snare. A 0.035 inch x 260 cm straight Hydra Jagwire was passed into the biliary tree. The 9 mm balloon was passed over the guidewire and the bile duct was then deeply cannulated. Contrast was injected. I personally interpreted the bile duct images. Ductal flow of contrast was adequate. Image quality was adequate. Contrast extended to the entire biliary tree. The lower third of the main bile duct contained two stones. There was no extravasation of contrast. The biliary tree was swept with a 10 mm balloon starting at the bifurcation. Sludge was swept from the duct. All stones were removed. Occlusion cholangiogram at the end of the procedure did not show any residual filling defects. Pancreatic duct was neither cannulated nor opacified. Impression: - One stent from the biliary tree was seen in the major papilla. - Prior biliary sphincterotomy appeared open. - Choledocholithiasis was found. Complete removal was accomplished by balloon extraction. - One stent was removed from the common bile duct. - The biliary tree was swept. Recommendation: - The patient will be observed post-procedure, until all discharge criteria are met. - Patient has a contact number available for emergencies. The signs and symptoms of potential delayed complications were discussed with the patient. Return to normal activities tomorrow. Written discharge instructions were provided to the patient. - Avoid aspirin and nonsteroidal anti-inflammatory medicines. - Clear liquid diet for 1 day, then advance as tolerated to low fat diet. - Return to GI clinic in [facility] (address [address], [address], [place], [facility]) in 4 -- 6 weeks. Please call GI clinic @ [phone] for apppointment date and time. - Telephone GI clinic if symptomatic. - Return to primary care physician. Willie Sinclair MD Willie Sinclair MD 03/24/2020 8:35:34 AM Number of Addenda: 0 Note Initiated On: 03/24/2020 7:25 AM Estimated Blood Loss: Estimated blood loss was minimal.
--- NOTE | 2020-04-21 09:43 | REP ---
C-ARM VIEWS DURING ERCP EXAM HISTORY: Bile duct fistula. FINDINGS: Multiple C-arm views are performed of the right upper quadrant during ERCP exam. Common bile duct is catheterized. Metallic clips are seen in the right upper quadrant compatible with prior cholecystectomy. Contrast partially opacifies intrahepatic bile ducts, as well as the extrahepatic, common hepatic, and common bile ducts. Catheter manipulation is performed. Contrast passes freely into the duodenum. Fluoroscopy time 1 minutes 26 seconds. MTDD
== END 2020-03-24 11:00 | disposition home or self-care (01) ==
LOC: M SDC 06:17
PROVIDERS: ATTEND Internal Medicine Gastroenterology
DX: K83.3 Fistula of bile duct (principal)
CPT/HCPCS: 43264; 43273; 43275; 74330; C2625; J1100; J2250; J2405; J3010; Q9967

== ENCOUNTER → 2020-05-27 | Outpatient (CLI) | payer OTHER ==
[2020-05-27 10:34] LABS: BASO # 0.1 10^3/uL (0.0-0.2); BASO % 0.9 % (0.0-1.0); EOS # 0.3 10^3/uL (0.0-0.5); EOS % 4.7 % (0.0-3.0); HEMATOCRIT 46.9 % (42.0-52.0); HEMOGLOBIN 15.1 g/dl (13.5-17.5); LYMPH # 1.8 10^3/uL (1.5-5.0); LYMPH % 33.2 % (24.0-44.0); MEAN CORPUSCULAR HEMOGLOBIN 28.7 pg (27.0-33.0); MEAN CORPUSCULAR HGB CONC 32.2 g/dl (32.0-36.5); MEAN CORPUSCULAR VOLUME 89.2 fl (80.0-96.0); MONO # 0.5 10^3/uL (0.0-0.8); MONO % 8.5 % (0.0-5.0); NEUTROPHILS # 2.9 10^3/uL (1.5-8.5); NEUTROPHILS % 52.5 % (36.0-66.0); PLATELET COUNT, AUTOMATED 230 10^3/uL (150-450); RED BLOOD COUNT 5.26 10^6/uL (4.30-6.10); WHITE BLOOD COUNT 5.5 10^3/uL (4.0-10.0)
[2020-05-27 11:04] LABS: AMYLASE 51 U/L (25-115); LIPASE 58 U/L (73-393)
[2020-05-27 11:07] LABS: ALBUMIN 3.8 GM/DL (3.2-5.2); ALT/SGPT 29 U/L (12-78); BILIRUBIN,DIRECT 0.2 MG/DL (0.0-0.2); BILIRUBIN,TOTAL 1.3 MG/DL (0.2-1.0); BLOOD UREA NITROGEN 11 MG/DL (7-18); CREATININE FOR GFR 1.06 MG/DL (0.70-1.30); GLOMERULAR FILTRATION RATE > 60.0 (>56); TOTAL PROTEIN 7.4 GM/DL (6.4-8.2)
== END ==
LOC: M LAB 09:40
PROVIDERS: ATTEND Internal Medicine Gastroenterology
DX: K83.3 Fistula of bile duct (principal)

== ENCOUNTER → 2020-09-18 | Outpatient (CLI) | payer OTHER ==
[~2020-09-18] MED LIST changes: +LISI10TA22 PO; -LISI10TA4 PO; +SIME80CH5 PO; -SIME80TA PO
[2020-09-18 10:58] LABS: BASO # 0.1 10^3/uL (0.0-0.2); BASO % 1.2 % (0.0-1.0); EOS # 0.4 10^3/uL (0.0-0.5); EOS % 6.4 % (0.0-3.0); HEMOGLOBIN 14.5 g/dl (13.5-17.5); LYMPH % 32.9 % (24.0-44.0); MEAN CORPUSCULAR HEMOGLOBIN 28.4 pg (27.0-33.0); MEAN CORPUSCULAR HGB CONC 31.5 g/dl (32.0-36.5); MEAN CORPUSCULAR VOLUME 90.2 fl (80.0-96.0); MONO # 0.6 10^3/uL (0.0-0.8); MONO % 9.8 % (2.0-8.0); NEUTROPHILS # 2.9 10^3/uL (1.5-8.5); NEUTROPHILS % 49.5 % (36.0-66.0); PLATELET COUNT, AUTOMATED 207 10^3/uL (150-450); WHITE BLOOD COUNT 5.9 10^3/uL (4.0-10.0)
[2020-09-18 11:21] LABS: HEMOGLOBIN A1c 6.4 %
[2020-09-18 11:39] LABS: ALBUMIN 3.9 GM/DL (3.2-5.2); ALT/SGPT 33 U/L (12-78); BILIRUBIN,TOTAL 0.9 MG/DL (0.2-1.0); BLOOD UREA NITROGEN 16 MG/DL (7-18); CALCIUM LEVEL 8.8 MG/DL (8.5-10.1); CARBON DIOXIDE LEVEL 28 MEQ/L (21-32); CHLORIDE LEVEL 108 MEQ/L (98-107); CHOLESTEROL LEVEL 177 MG/DL (<200); CPK CREATINE PHOSPHOKINASE 113 U/L (39-308); CREATININE FOR GFR 1.06 MG/DL (0.70-1.30); FERRITIN 44 NG/ML (26-388); GLOMERULAR FILTRATION RATE > 60.0 (>56); GLUCOSE, FASTING 117 MG/DL (70-100); HDL CHOLESTEROL 50 MG/DL (>40); IRON (FE) 52 UG/DL (65-175); LDL CHOLESTEROL 110 MG/DL (<100); NON-HDL-C 127 MG/DL; POTASSIUM SERUM 4.9 MEQ/L (3.5-5.1); SODIUM LEVEL 140 MEQ/L (136-145); TOTAL PROTEIN 7.1 GM/DL (6.4-8.2); TRIGLYCERIDES LEVEL 85 MG/DL (<150)
== END ==
LOC: M LAB 09:41
PROVIDERS: ATTEND Physician Assistant Medical
DX: D50.9 Iron deficiency anemia, unspecified (principal); E66.3 Overweight; Z12.5 Encounter for screening for malignant neoplasm of prostate

== ENCOUNTER → 2020-11-14 | Outpatient (CLI) | payer SELFPAY | LOC: M LABSMTC 12:36 | PROVIDERS: ATTEND Pediatrics | DX: Z20.822 Contact with and (suspected) exposure to COVID-19 (principal) ==

== ENCOUNTER 2020-11-18 09:40 | Outpatient (CLI) | payer MEDICARE ==
[2020-11-18] VITALS (7 sets, daily range): BP systolic 130–170; BP diastolic 76–94
[~2020-11-18] VITALS: Ht 177.8 cm; Wt 86.6 kg
[2020-11-18] MEDS ORDERED: EPINEPHrine INJ 1 MG/ML 1ML AMP IM PRN (10:00)
[2020-11-18] MEDS ORDERED: methylPREDNISolone 125MG 2ML VIAL IV PRN (10:00)
[2020-11-18] MEDS ORDERED: diphenhydrAMINE 25MG CAP PO ONE (10:00)
[2020-11-18] MEDS ORDERED: ACETAMINOPHEN TAB 650MG DOSE (2X325MG) PO ONE (10:00)
[2020-11-18] MEDS ORDERED: ALBUTEROL 90 MCG/ACT 8GM HFA INHALER INH PRN (10:00)
[2020-11-18] MEDS ORDERED: NS 1,000 ML IV SCH (10:00)
[2020-11-18] MEDS ORDERED: ALBUTEROL SULFATE 2.5 MG/0.5 ML INH NEB SOLN INH PRN (10:00)
[2020-11-18] MEDS ORDERED: diphenhydrAMINE 50MG/ML VIAL (J1200) IV PRN (10:00)
[2020-11-18] MEDS ORDERED: [UNRECOGNIZED DRUG - OTHER] IV ONE (12:00)
== END 2020-11-18 13:10 | disposition home or self-care (01) ==
LOC: M OPCLI4PR 09:40
PROVIDERS: ATTEND Physician Assistant Medical
DX: U07.1 COVID-19 (principal)

== ENCOUNTER → 2021-05-13 | Outpatient (CLI) | payer OTHER ==
[2021-05-13 11:55] LABS: BASO # 0.1 10^3/uL (0.0-0.2); BASO % 1.1 % (0.0-1.0); EOS # 0.3 10^3/uL (0.0-0.5); EOS % 4.7 % (0.0-3.0); HEMATOCRIT 44.6 % (42.0-52.0); HEMOGLOBIN 14.7 g/dl (13.5-17.5); LYMPH % 28.2 % (24.0-44.0); MEAN CORPUSCULAR HEMOGLOBIN 29.1 pg (27.0-33.0); MEAN CORPUSCULAR VOLUME 88.1 fl (80.0-96.0); MONO # 0.5 10^3/uL (0.0-0.8); NEUTROPHILS # 4.1 10^3/uL (1.5-8.5); NEUTROPHILS % 58.7 % (36.0-66.0); PLATELET COUNT, AUTOMATED 224 10^3/uL (150-450); RED BLOOD COUNT 5.06 10^6/uL (4.30-6.10)
[2021-05-13 12:21] LABS: ALBUMIN 3.8 GM/DL (3.2-5.2); ALT/SGPT 39 U/L (12-78); BILIRUBIN,TOTAL 1.4 MG/DL (0.2-1.0); BLOOD UREA NITROGEN 13 MG/DL (7-18); CALCIUM LEVEL 9.2 MG/DL (8.5-10.1); CARBON DIOXIDE LEVEL 24 MEQ/L (21-32); CHLORIDE LEVEL 110 MEQ/L (98-107); CREATININE FOR GFR 0.97 MG/DL (0.70-1.30); GLOMERULAR FILTRATION RATE > 60.0 (>56); GLUCOSE, FASTING 112 MG/DL (70-100); IRON (FE) 69 UG/DL (65-175); POTASSIUM SERUM 4.6 MEQ/L (3.5-5.1); SODIUM LEVEL 139 MEQ/L (136-145); TOTAL PROTEIN 7.1 GM/DL (6.4-8.2)
[2021-05-13 12:52] LABS: HEMOGLOBIN A1c 5.9 %
== END ==
LOC: M LAB 10:04
PROVIDERS: ATTEND Physician Assistant Medical
DX: Z13.220 Encounter for screening for lipoid disorders (principal); D50.9 Iron deficiency anemia, unspecified; E66.3 Overweight

== ENCOUNTER → 2021-10-29 | Outpatient (CLI) | payer OTHER ==
[2021-10-29 11:31] LABS: BASO # 0.1 10^3/uL (0.0-0.2); EOS # 0.2 10^3/uL (0.0-0.5); HEMATOCRIT 43.5 % (42.0-52.0); HEMOGLOBIN 14.9 g/dl (13.5-17.5); LYMPH # 1.6 10^3/uL (1.5-5.0); MEAN CORPUSCULAR HEMOGLOBIN 29.5 pg (27.0-33.0); MEAN CORPUSCULAR HGB CONC 34.3 g/dl (32.0-36.5); MEAN CORPUSCULAR VOLUME 86.1 fl (80.0-96.0); MONO # 0.4 10^3/uL (0.0-0.8); MONO % 8.1 % (2.0-8.0); NEUTROPHILS # 2.5 10^3/uL (1.5-8.5); NEUTROPHILS % 52.5 % (36.0-66.0); PLATELET COUNT, AUTOMATED 167 10^3/uL (150-450); RED BLOOD COUNT 5.05 10^6/uL (4.30-6.10); WHITE BLOOD COUNT 4.8 10^3/uL (4.0-10.0)
[2021-10-29 12:13] LABS: ALT/SGPT 49 U/L (12-78); BILIRUBIN,TOTAL 1.9 MG/DL (0.2-1.0); BLOOD UREA NITROGEN 11 MG/DL (7-18); CARBON DIOXIDE LEVEL 25 MEQ/L (21-32); CHLORIDE LEVEL 106 MEQ/L (98-107); CREATININE FOR GFR 0.98 MG/DL (0.70-1.30); FERRITIN 88 NG/ML (26-388); GLOMERULAR FILTRATION RATE > 60.0 (>56); GLUCOSE, FASTING 283 MG/DL (70-100); IRON (FE) 94 UG/DL (65-175); LIPASE 75 U/L (73-393); MAGNESIUM LEVEL 2.2 MG/DL (1.8-2.4); POTASSIUM SERUM 4.1 MEQ/L (3.5-5.1); SODIUM LEVEL 137 MEQ/L (136-145)
[2021-10-29 12:44] LABS: HEMOGLOBIN A1c 10.1 %
== END ==
LOC: M LAB 10:58
PROVIDERS: ATTEND Physician Assistant Medical
DX: E11.9 Type 2 diabetes mellitus without complications (principal)

== ENCOUNTER → 2021-11-25 | Outpatient (CLI) | payer OTHER ==
[2021-11-25 16:52] LABS: BILIRUBIN,DIRECT 0.3 MG/DL (0.0-0.2); BILIRUBIN,TOTAL 1.3 MG/DL (0.2-1.0)
== END ==
LOC: M LAB 12:15
PROVIDERS: ATTEND Physician Assistant Medical
DX: R17 Unspecified jaundice (principal)

== ENCOUNTER → 2022-02-04 | Outpatient (CLI) | payer OTHER ==
[~2022-02-04] MED LIST changes: +HEPA100I12 IV; -HEPA100I14 IV
[2022-02-04 15:32] LABS: BASO # 0.1 10^3/uL (0.0-0.2); BASO % 0.9 % (0.0-1.0); EOS # 0.1 10^3/uL (0.0-0.5); EOS % 1.9 % (0.0-3.0); HEMATOCRIT 46.4 % (42.0-52.0); HEMOGLOBIN 15.6 g/dl (13.5-17.5); LYMPH # 1.6 10^3/uL (1.5-5.0); LYMPH % 21.7 % (24.0-44.0); MEAN CORPUSCULAR HEMOGLOBIN 30.2 pg (27.0-33.0); MEAN CORPUSCULAR HGB CONC 33.6 g/dl (32.0-36.5); MEAN CORPUSCULAR VOLUME 89.9 fl (80.0-96.0); MONO # 0.5 10^3/uL (0.0-0.8); NEUTROPHILS # 5.1 10^3/uL (1.5-8.5); NEUTROPHILS % 68.1 % (36.0-66.0); PLATELET COUNT, AUTOMATED 184 10^3/uL (150-450); RED BLOOD COUNT 5.16 10^6/uL (4.30-6.10); WHITE BLOOD COUNT 7.5 10^3/uL (4.0-10.0)
[2022-02-04 16:19] LABS: ALBUMIN 4.1 GM/DL (3.2-5.2); ALT/SGPT 34 U/L (12-78); BILIRUBIN,TOTAL 1.4 MG/DL (0.2-1.0); BLOOD UREA NITROGEN 11 MG/DL (7-18); CALCIUM LEVEL 9.3 MG/DL (8.5-10.1); CARBON DIOXIDE LEVEL 16 MEQ/L (21-32); CHLORIDE LEVEL 100 MEQ/L (98-107); CREATININE FOR GFR 1.19 MG/DL (0.70-1.30); FERRITIN 180 NG/ML (26-388); GLOMERULAR FILTRATION RATE > 60.0 (>56); GLUCOSE, FASTING 589 MG/DL (70-100); IRON (FE) 76 UG/DL (65-175); POTASSIUM SERUM 5.5 MEQ/L (3.5-5.1); SODIUM LEVEL 132 MEQ/L (136-145); TOTAL 25(OH) VITAMIN D 14.9 NG/ML (30.0-100.0); TOTAL PROTEIN 7.2 GM/DL (6.4-8.2); VITAMIN B12 LEVEL 1111 PG/ML (247-911)
[2022-02-04 16:39] LABS: CA19-9 TUMOR MARKER,CARBOHYDRA 19.2 U/ML (<35.0)
== END ==
LOC: M PLALAB 14:13
PROVIDERS: ATTEND Physician Assistant Medical
DX: R63.4 Abnormal weight loss (principal)

== ENCOUNTER → 2022-02-11 | Outpatient (CLI) | payer OTHER | LOC: M RAD 09:23 | PROVIDERS: ATTEND Physician Assistant Medical | DX: R63.4 Abnormal weight loss (principal) ==

== ENCOUNTER → 2022-06-24 | Outpatient (CLI) | payer OTHER ==
[~2022-06-24] MED LIST changes: -DOXY-350 PO; +DOXY-444 PO
[2022-06-24 11:09] LABS: BASO # 0.1 10^3/uL (0.0-0.2); EOS # 0.3 10^3/uL (0.0-0.5); EOS % 5.2 % (0.0-3.0); HEMATOCRIT 47.5 % (42.0-52.0); HEMOGLOBIN 15.1 g/dl (13.5-17.5); LYMPH # 1.6 10^3/uL (1.5-5.0); LYMPH % 33.1 % (24.0-44.0); MEAN CORPUSCULAR HEMOGLOBIN 28.9 pg (27.0-33.0); MEAN CORPUSCULAR HGB CONC 31.8 g/dl (32.0-36.5); MEAN CORPUSCULAR VOLUME 90.8 fl (80.0-96.0); MONO # 0.5 10^3/uL (0.0-0.8); MONO % 9.6 % (2.0-8.0); NEUTROPHILS # 2.4 10^3/uL (1.5-8.5); NEUTROPHILS % 50.5 % (36.0-66.0); PLATELET COUNT, AUTOMATED 221 10^3/uL (150-450); RED BLOOD COUNT 5.23 10^6/uL (4.30-6.10); WHITE BLOOD COUNT 4.8 10^3/uL (4.0-10.0)
[2022-06-24 11:45] LABS: ALBUMIN 4.1 G/DL (3.2-5.2); ALKALINE PHOSPHATASE 68 U/L (46-116); ALT/SGPT 18 U/L (7.0-40); AST/SGOT 14 U/L (<34); BILIRUBIN,TOTAL 2.5 MG/DL (0.3-1.2); BLOOD UREA NITROGEN 13 MG/DL (9-23); CALCIUM LEVEL 9.3 MG/DL (8.5-10.1); CARBON DIOXIDE LEVEL 29 MMOL/L (20-31); CHLORIDE LEVEL 104 MMOL/L (98-107); CREATININE FOR GFR 0.95 MG/DL (0.70-1.30); GLOMERULAR FILTRATION RATE > 60.0 (>56); GLUCOSE, FASTING 89 MG/DL (60-100); HEMOGLOBIN A1c 6.2 % (4.0-6.0); IRON (FE) 95 UG/DL (65-175); POTASSIUM SERUM 4.7 MMOL/L (3.5-5.1); PTH INTACT 45.1 PG/ML (18.5-88.0); SODIUM LEVEL 139 MMOL/L (136-145); TOTAL PROTEIN 7.3 G/DL (5.7-8.2)
[2022-06-24 11:46] LABS: TOTAL 25(OH) VITAMIN D 23.4 NG/ML (20.0-100.0)
[2022-06-24 11:47] LABS: FREE T4 1.27 NG/DL (0.89-1.76)
== END ==
LOC: M PLALAB 08:42
PROVIDERS: ATTEND Physician Assistant Medical
DX: E11.9 Type 2 diabetes mellitus without complications (principal)

== ENCOUNTER → 2022-12-15 | Outpatient (CLI) | payer OTHER ==
[~2022-12-15] MED LIST changes: -HEPA100I12 IV; +POTA-298 PO; -POTA1TAB14 PO; +[UNRECOGNIZED DRUG - CODE] IV
[2022-12-15 13:34] LABS: ALBUMIN 3.6 G/DL (3.2-5.2); ALKALINE PHOSPHATASE 67 U/L (46-116); ALT/SGPT 23 U/L (7.0-40); AST/SGOT 15 U/L (<34); BILIRUBIN,TOTAL 1.3 MG/DL (0.3-1.2); BLOOD UREA NITROGEN 15 MG/DL (9-23); CALCIUM LEVEL 8.4 MG/DL (8.5-10.1); CARBON DIOXIDE LEVEL 28 MMOL/L (20-31); CHLORIDE LEVEL 106 MMOL/L (98-107); CREATININE FOR GFR 0.98 MG/DL (0.70-1.30); GLOMERULAR FILTRATION RATE > 60.0 (>56); GLUCOSE, FASTING 110 MG/DL (60-100); IRON (FE) 48 UG/DL (65-175); POTASSIUM SERUM 4.7 MMOL/L (3.5-5.1); SODIUM LEVEL 139 MMOL/L (136-145); TOTAL PROTEIN 6.7 G/DL (5.7-8.2)
[2022-12-15 13:35] LABS: PTH INTACT 53.8 PG/ML (18.5-88.0)
[2022-12-15 13:36] LABS: FERRITIN 29.9 NG/ML (10.5-307.3)
[2022-12-15 13:42] LABS: BASO # 0.1 10^3/uL (0.0-0.2); BASO % 0.8 % (0.0-1.0); EOS # 0.2 10^3/uL (0.0-0.5); EOS % 2.6 % (0.0-3.0); HEMATOCRIT 45.5 % (42.0-52.0); HEMOGLOBIN 14.5 g/dl (13.5-17.5); LYMPH # 1.5 10^3/uL (1.5-5.0); LYMPH % 23.3 % (24.0-44.0); MEAN CORPUSCULAR HEMOGLOBIN 29.1 pg (27.0-33.0); MEAN CORPUSCULAR HGB CONC 31.9 g/dl (32.0-36.5); MEAN CORPUSCULAR VOLUME 91.2 fl (80.0-96.0); MONO # 0.6 10^3/uL (0.0-0.8); MONO % 9.5 % (2.0-8.0); NEUTROPHILS # 4.2 10^3/uL (1.5-8.5); NEUTROPHILS % 63.5 % (36.0-66.0); PLATELET COUNT, AUTOMATED 202 10^3/uL (150-450); RED BLOOD COUNT 4.99 10^6/uL (4.30-6.10); WHITE BLOOD COUNT 6.6 10^3/uL (4.0-10.0)
== END ==
LOC: M PLALAB 11:24
PROVIDERS: ATTEND Physician Assistant Medical
DX: E11.9 Type 2 diabetes mellitus without complications (principal)

== ENCOUNTER → 2022-12-15 | Outpatient (REF) | payer OTHER | LOC: M SFHCPLAZ 10:45 | PROVIDERS: ATTEND Physician Assistant Medical | DX: E11.9 Type 2 diabetes mellitus without complications (principal); D50.9 Iron deficiency anemia, unspecified; K21.9 Gastro-esophageal reflux disease without esophagitis; E55.9 Vitamin D deficiency, unspecified ==

== ENCOUNTER → 2023-05-25 | Outpatient (CLI) | payer OTHER ==
[2023-05-25 13:38] LABS: BASO # 0.1 10^3/uL (0.0-0.2); BASO % 0.8 % (0.0-1.0); EOS # 0.3 10^3/uL (0.0-0.5); EOS % 5.4 % (0.0-3.0); HEMATOCRIT 44.2 % (42.0-52.0); HEMOGLOBIN 14.5 g/dl (13.5-17.5); LYMPH # 2.1 10^3/uL (1.5-5.0); LYMPH % 35.3 % (24.0-44.0); MEAN CORPUSCULAR HEMOGLOBIN 29.7 pg (27.0-33.0); MEAN CORPUSCULAR HGB CONC 32.8 g/dl (32.0-36.5); MEAN CORPUSCULAR VOLUME 90.4 fl (80.0-96.0); MONO # 0.5 10^3/uL (0.0-0.8); MONO % 8.8 % (2.0-8.0); NEUTROPHILS # 2.9 10^3/uL (1.5-8.5); NEUTROPHILS % 49.4 % (36.0-66.0); PLATELET COUNT, AUTOMATED 205 10^3/uL (150-450); RED BLOOD COUNT 4.89 10^6/uL (4.30-6.10); WHITE BLOOD COUNT 5.9 10^3/uL (4.0-10.0)
[2023-05-25 14:09] LABS: HEMOGLOBIN A1c 5.6 % (4.0-6.0)
[2023-05-25 14:10] LABS: LIPASE 25 U/L (12-53)
[2023-05-25 14:11] LABS: CREATININE, URINE 48.3 MG/DL; MALB URINE SIEMENS < 3.0 MG/L; MAU/CREAT RATIO 6.2 MCG/MG (0.0-30.0)
[2023-05-25 14:12] LABS: IRON (FE) 75 UG/DL (65-175)
[2023-05-25 14:16] LABS: ALKALINE PHOSPHATASE 66 U/L (46-116); ALT/SGPT 23 U/L (7.0-40); AST/SGOT 16 U/L (<34); BILIRUBIN,TOTAL 1.9 MG/DL (0.3-1.2); BLOOD UREA NITROGEN 13 MG/DL (9-23); CALCIUM LEVEL 9.2 MG/DL (8.5-10.1); CARBON DIOXIDE LEVEL 29 MMOL/L (20-31); CHLORIDE LEVEL 105 MMOL/L (98-107); CHOLESTEROL LEVEL 119 MG/DL (<200); CHOLESTEROL RISK RATIO 1.97 (<5); CREATININE FOR GFR 0.93 MG/DL (0.70-1.30); FERRITIN 44.4 NG/ML (10.5-307.3); GLOMERULAR FILTRATION RATE > 60.0 (>56); GLUCOSE, FASTING 64 MG/DL (60-100); HDL CHOLESTEROL 60.2 MG/DL (>40); LDL CHOLESTEROL 46.6 MG/DL (<100); NON-HDL-C 58.8 MG/DL; POTASSIUM SERUM 4.6 MMOL/L (3.5-5.1); PTH INTACT 39.6 PG/ML (18.5-88.0); SODIUM LEVEL 140 MMOL/L (136-145); TOTAL 25(OH) VITAMIN D 26.5 NG/ML (20.0-100.0); TRIGLYCERIDES LEVEL 61 MG/DL (<150)
== END ==
LOC: M PLALAB 11:49
PROVIDERS: ATTEND Physician Assistant Medical
DX: E55.9 Vitamin D deficiency, unspecified (principal)

== ENCOUNTER → 2023-10-12 | Outpatient (CLI) | payer OTHER ==
[2023-10-12 16:02] LABS: BASO # 0.1 10^3/uL (0.0-0.2); BASO % 0.9 % (0.0-1.0); EOS # 0.3 10^3/uL (0.0-0.5); HEMATOCRIT 46.1 % (42.0-52.0); HEMOGLOBIN 15.1 g/dl (13.5-17.5); LYMPH # 2.1 10^3/uL (1.5-5.0); LYMPH % 31.8 % (24.0-44.0); MEAN CORPUSCULAR HEMOGLOBIN 29.2 pg (27.0-33.0); MEAN CORPUSCULAR HGB CONC 32.8 g/dl (32.0-36.5); MEAN CORPUSCULAR VOLUME 89.2 fl (80.0-96.0); MONO # 0.6 10^3/uL (0.0-0.8); MONO % 8.3 % (2.0-8.0); NEUTROPHILS # 3.7 10^3/uL (1.5-8.5); NEUTROPHILS % 54.9 % (36.0-66.0); PLATELET COUNT, AUTOMATED 213 10^3/uL (150-450); RED BLOOD COUNT 5.17 10^6/uL (4.30-6.10); WHITE BLOOD COUNT 6.7 10^3/uL (4.0-10.0)
[2023-10-12 16:06] LABS: LIPASE 24 U/L (12-53)
[2023-10-12 16:08] LABS: ALKALINE PHOSPHATASE 66 U/L (46-116); ALT/SGPT 21 U/L (7.0-40); AST/SGOT 12 U/L (<34); BILIRUBIN,TOTAL 2.1 MG/DL (0.3-1.2); BLOOD UREA NITROGEN 11 MG/DL (9-23); CALCIUM LEVEL 9.3 MG/DL (8.5-10.1); CARBON DIOXIDE LEVEL 30 MMOL/L (20-31); CHLORIDE LEVEL 108 MMOL/L (98-107); CREATININE FOR GFR 0.93 MG/DL (0.70-1.30); GLOMERULAR FILTRATION RATE > 60.0 (>56); GLUCOSE, FASTING 67 MG/DL (60-100); IRON (FE) 86 UG/DL (65-175); POTASSIUM SERUM 4.7 MMOL/L (3.5-5.1); SODIUM LEVEL 141 MMOL/L (136-145)
[2023-10-12 16:18] LABS: HEMOGLOBIN A1c 5.7 % (4.0-6.0)
== END ==
LOC: M PLALAB 12:32
PROVIDERS: ATTEND Physician Assistant Medical
DX: S49.92XA Unspecified injury of left shoulder and upper arm, initial encounter (principal); Z87.19 Personal history of other diseases of the digestive system; E11.9 Type 2 diabetes mellitus without complications; D50.9 Iron deficiency anemia, unspecified; W18.30XA Fall on same level, unspecified, initial encounter; Y92.009 Unspecified place in unspecified non-institutional (private) residence as the place of occurrence of the external cause

== ENCOUNTER 2024-02-23 06:47 | Day surgery (SDC) | payer OTHER ==
[~2024-02-23] VITALS: Ht 177.8 cm; Wt 84.2 kg
[~2024-02-23 06:47] MED LIST changes: +ATOR1TAB19 PO; +BASA100I SQ; +CREO6000 PO; +D-101000 PO; +DOXY-440 PO; -DOXY-444 PO; +METF-838 PO; -METO1TAB87; +MULTTAB61 PO; -PANT40TA29
[2024-02-23] MEDS ORDERED: propofoL 200 MG/20 ML VIAL As Ordered ONE (07:11)
[2024-02-23] MEDS ORDERED: LIDOCAINE 2% 100MG/5ML SDV (FOR ANES.) As Ordered ONE (07:14)
[2024-02-23] MEDS: NS 1,000 ML IV ONE (07:17)
[2024-02-23 08:44] VITALS: BP 141/92; O2SAT 99
== END 2024-02-23 08:49 | disposition home or self-care (01) ==
LOC: M OPP 06:47
PROVIDERS: ATTEND Internal Medicine Gastroenterology
DX: Z12.11 Encounter for screening for malignant neoplasm of colon (principal); K64.8 Other hemorrhoids; K57.30 Diverticulosis of large intestine without perforation or abscess without bleeding; E11.9 Type 2 diabetes mellitus without complications; I10 Essential (primary) hypertension; Z79.02 Long term (current) use of antithrombotics/antiplatelets; Z79.1 Long term (current) use of non-steroidal anti-inflammatories (NSAID); Z79.4 Long term (current) use of insulin; Z79.899 Other long term (current) drug therapy; Z91.030 Bee allergy status

== ENCOUNTER → 2024-04-18 | Outpatient (CLI) | payer OTHER ==
[2024-04-18 14:05] LABS: BASO # 0.1 10^3/uL (0.0-0.2); BASO % 0.7 % (0.0-1.0); EOS # 0.3 10^3/uL (0.0-0.5); EOS % 3.6 % (0.0-3.0); HEMATOCRIT 44.8 % (42.0-52.0); HEMOGLOBIN 14.6 g/dl (13.5-17.5); LYMPH # 1.8 10^3/uL (1.5-5.0); LYMPH % 23.5 % (24.0-44.0); MEAN CORPUSCULAR HEMOGLOBIN 29.3 pg (27.0-33.0); MEAN CORPUSCULAR HGB CONC 32.6 g/dl (32.0-36.5); MONO # 0.6 10^3/uL (0.0-0.8); MONO % 7.8 % (2.0-8.0); NEUTROPHILS # 4.8 10^3/uL (1.5-8.5); NEUTROPHILS % 63.9 % (36.0-66.0); PLATELET COUNT, AUTOMATED 220 10^3/uL (150-450); RED BLOOD COUNT 4.98 10^6/uL (4.30-6.10); WHITE BLOOD COUNT 7.5 10^3/uL (4.0-10.0)
[2024-04-18 14:08] LABS: PSA SCREENING 0.44 NG/ML (< 4.00)
[2024-04-18 14:11] LABS: FERRITIN 45.1 NG/ML (10.5-307.3)
[2024-04-18 14:13] LABS: LIPASE 25 U/L (12-53)
[2024-04-18 14:15] LABS: IRON (FE) 81 UG/DL (65-175)
[2024-04-18 14:17] LABS: ALBUMIN 3.9 G/DL (3.2-5.2); ALKALINE PHOSPHATASE 74 U/L (46-116); ALT/SGPT 20 U/L (7.0-40); AST/SGOT 12 U/L (<34); BILIRUBIN,TOTAL 1.7 MG/DL (0.3-1.2); BLOOD UREA NITROGEN 18 MG/DL (9-23); CALCIUM LEVEL 9.4 MG/DL (8.5-10.1); CARBON DIOXIDE LEVEL 27 MMOL/L (20-31); CHLORIDE LEVEL 110 MMOL/L (98-107); CHOLESTEROL LEVEL 127 MG/DL (<200); CHOLESTEROL RISK RATIO 2.61 (<5); CREATININE FOR GFR 0.97 MG/DL (0.70-1.30); GLOMERULAR FILTRATION RATE > 60.0 (>56); GLUCOSE, FASTING 82 MG/DL (60-100); HDL CHOLESTEROL 48.5 MG/DL (>40); LDL CHOLESTEROL 69.1 MG/DL (<100); NON-HDL-C 78.5 MG/DL; POTASSIUM SERUM 4.4 MMOL/L (3.5-5.1); PTH INTACT 50.7 PG/ML (18.5-88.0); SODIUM LEVEL 141 MMOL/L (136-145); TOTAL PROTEIN 7.2 G/DL (5.7-8.2); TRIGLYCERIDES LEVEL 47 MG/DL (<150)
[2024-04-18 14:51] LABS: HEMOGLOBIN A1c 5.5 % (4.0-6.0)
== END ==
LOC: M PLAIMG 10:53
PROVIDERS: ATTEND Physician Assistant Medical
DX: M19.112 Post-traumatic osteoarthritis, left shoulder (principal)

== ENCOUNTER → 2024-07-12 | Outpatient (CLI) | payer OTHER ==
[2024-07-12 14:09] LABS: BASO # 0.1 10^3/uL (0.0-0.2); EOS # 0.4 10^3/uL (0.0-0.5); EOS % 7.2 % (0.0-3.0); HEMATOCRIT 41.8 % (42.0-52.0); HEMOGLOBIN 13.7 g/dl (13.5-17.5); LYMPH # 1.7 10^3/uL (1.5-5.0); LYMPH % 28.8 % (24.0-44.0); MEAN CORPUSCULAR HEMOGLOBIN 29.6 pg (27.0-33.0); MEAN CORPUSCULAR HGB CONC 32.8 g/dl (32.0-36.5); MEAN CORPUSCULAR VOLUME 90.3 fl (80.0-96.0); MONO # 0.5 10^3/uL (0.0-0.8); MONO % 8.5 % (2.0-8.0); NEUTROPHILS # 3.3 10^3/uL (1.5-8.5); NEUTROPHILS % 54.2 % (36.0-66.0); PLATELET COUNT, AUTOMATED 202 10^3/uL (150-450); RED BLOOD COUNT 4.63 10^6/uL (4.30-6.10)
[2024-07-12 14:18] LABS: FERRITIN 45.5 NG/ML (10.5-307.3)
== END ==
LOC: M PLALAB 09:51
PROVIDERS: ATTEND Physician Assistant Medical
DX: D50.9 Iron deficiency anemia, unspecified (principal)

== ENCOUNTER → 2024-11-15 | Outpatient (CLI) | payer OTHER ==
[2024-11-15 15:27] LABS: FERRITIN 46.2 NG/ML (10.5-307.3)
[2024-11-15 15:37] LABS: HEMOGLOBIN A1c 5.5 % (4.0-6.0)
== END ==
LOC: M PLALAB 12:17
PROVIDERS: ATTEND Physician Assistant Medical
DX: D50.9 Iron deficiency anemia, unspecified (principal)

== ENCOUNTER → 2025-05-15 | Outpatient (REF) | payer OTHER ==
[2025-05-15 15:26] LABS: BASO # 0.1 10^3/uL (0.0-0.2); BASO % 0.9 % (0.0-1.0); EOS # 0.5 10^3/uL (0.0-0.5); EOS % 8.6 % (0.0-3.0); LYMPH # 1.5 10^3/uL (1.5-5.0); LYMPH % 27.7 % (24.0-44.0); MONO # 0.5 10^3/uL (0.0-0.8); MONO % 9.2 % (2.0-8.0); NEUTROPHILS # 2.9 10^3/uL (1.5-8.5); NEUTROPHILS % 53.4 % (36.0-66.0); PLATELET COUNT, AUTOMATED 216 10^3/uL (150-450)
[2025-05-15 15:33] LABS: IRON (FE) 51 UG/DL (65-175)
[2025-05-15 15:34] LABS: ALT/SGPT 26 U/L (7.0-40); AST/SGOT 19 U/L (<34); CALCIUM LEVEL 9.0 MG/DL (8.5-10.1); CARBON DIOXIDE LEVEL 27 MMOL/L (20-31); CHLORIDE LEVEL 105 MMOL/L (98-107); CHOLESTEROL LEVEL 108 MG/DL (<200); CHOLESTEROL RISK RATIO 2.16 (<5); CREATININE FOR GFR 0.92 MG/DL (0.70-1.30); GLOMERULAR FILTRATION RATE > 90.0 (>56); LDL CHOLESTEROL 45.8 MG/DL (<100); NON-HDL-C 58.2 MG/DL; POTASSIUM SERUM 4.6 MMOL/L (3.5-5.1); PSA SCREENING 0.39 NG/ML (< 4.00); PTH INTACT 39.8 PG/ML (18.5-88.0); SODIUM LEVEL 142 MMOL/L (136-145); TRIGLYCERIDES LEVEL 62 MG/DL (<150)
[2025-05-15 15:36] LABS: TOTAL 25(OH) VITAMIN D 40.7 NG/ML (20.0-100.0)
[2025-05-15 17:25] LABS: ESTIMATED AVERAGE GLUCOSE 114.0 MG/DL (60-110)
== END ==
LOC: M SFHCPLAZ 11:23
PROVIDERS: ATTEND Physician Assistant Medical
DX: E11.9 Type 2 diabetes mellitus without complications (principal); E55.9 Vitamin D deficiency, unspecified; Z87.19 Personal history of other diseases of the digestive system; E78.49 Other hyperlipidemia; Z12.5 Encounter for screening for malignant neoplasm of prostate; D50.9 Iron deficiency anemia, unspecified